=== PATIENT | female | born 1990 | race Caucasian/White ===

== ENCOUNTER 2020-05-07 09:16 | Outpatient (CLI) | payer OTHER, SELFPAY ==
[2020-05-07 10:13] LABS: Alanine Aminotransferase 23 U/L (4-35); Albumin Level 4.2 g/dL (3.5-5.1); Alkaline Phosphatase 68 U/L (38-126); Aspartate Amino Transferase 36 U/L (14-36); Bilirubin,Total 0.6 mg/dL (0.2-1.3)
[2020-05-07 11:41] LABS: Immunoglobulin A 202 mg/dL (70-400)
[2020-05-12 21:27] LABS: Tissue Transglutaminase IgA Ab 1 U/mL (<4)
[2020-05-15 18:16] LABS: Calprotectin, Stool 793 mcg/g
== END 2020-05-07 09:17 | disposition home or self-care (01) ==
PROVIDERS: PCP Family Medicine
DX: R19.7 Diarrhea, unspecified (principal); R79.89 Other specified abnormal findings of blood chemistry
CPT/HCPCS: 36415; 80076; 82784; 83516; 83993; 84443; 87015; 87177; 87209; 87269; 87272; 87324; 87493

== ENCOUNTER 2020-05-25 14:50 | Outpatient (RCR) | payer OTHER, SELFPAY ==
[2020-05-25 15:20] VITALS: BMI 26.2
== END 2020-08-13 09:35 | disposition home or self-care (01) ==
LOC: ANHDMC 14:50
PROVIDERS: PCP Family Medicine; Visit Provider Physician Assistant
DX: K58.9 Irritable bowel syndrome, unspecified (principal); Z71.3 Dietary counseling and surveillance
CPT/HCPCS: 97802

== ENCOUNTER 2020-12-09 14:36 | Outpatient (CLI) | payer OTHER, SELFPAY ==
--- NOTE | ~2020-12-09 | US_ITS ---
EXAMINATION: US OB <= 14 weeks fetus DATE: 12/09/2020 15:03 INDICATION: Establish dating and viability of first trimester TECHNIQUE: Real-time pelvic ultrasound utilizing both a transvaginal and transabdominal probe was pe rformed. The interpreting radiologist was not present for the study. COMPARISON: None. FINDINGS: The uterus measures 7.1 x 5.4 x 5.5 cm. There is an intrauterine gestational sac. A yolk sac and fet al pole are identified. The crown rump length measures 2.4 cm, which correlates with an estimated ges tational age of 9 weeks and 1 days. heart motion is identified measuring 185 beats per minute ( bpm) by M-mode Doppler. The right ovary is not visualized The left ovary measures 1.4 x 1.6 x 2.1 cm. Vascular flow is identi fied in the ovary on color Doppler. There is no free fluid in the pelvis. IMPRESSION: 1. Single living fetus with heart of 185 bpm. 2. Gestational age by ultrasound of 9 weeks 1 day(s) +/- 6 day(s) with ultrasound estimated date of delivery ([place]) of 07/13/2021. Reviewed, dictated and finalized at location A. IMPRESSION: 1. Single living fetus with heart of 185 bpm. 2. Gestational age by ultrasound of 9 weeks 1 day(s) +/- 6 day(s) with ultraso und estimated date of delivery ([place]) of 07/13/2021.
== END 2020-12-09 14:37 | disposition home or self-care (01) ==
PROVIDERS: PCP Family Medicine; Visit Provider Student in an Organized Health Care Education/Training Program
DX: Z36.89 Encounter for other specified antenatal screening (principal); Z3A.09 9 weeks gestation of pregnancy
CPT/HCPCS: 76801

== ENCOUNTER 2020-12-20 08:57 | Outpatient (CLI) | payer OTHER, SELFPAY ==
--- NOTE | ~2020-12-20 | US_ITS ---
EXAMINATION: US OB <= 14 weeks fetus EXAM DATE: 12/20/2020 10:40 INDICATION: O20.0 - Threatened . 1st trimester. TECHNIQUE: Pelvic obstetrical transabdominal sonogram was performed by a technologist. There are mu ltiple grayscale and Doppler images available for interpretation. Comparison is made to prior examina tion from 12/09/2020. FINDINGS: Uterus measures 11.8 x 7.6 x 5.6 cm. There is intrauterine gestation sac. pole with heart rate confirmed at 167 beats per minute. The 3.3 cm crown-rump length corresponds to estimated gestational age by ultrasound of 10 weeks 2 days, estimated date of confinement 07/16. Yolk sac is i dentified. There is small subchorionic hypoechoic region identified measuring about 1.5 cm diameter by 7 mm in thickness, probably small subchorionic hemorrhage. Left ovary identified, morphologicall y normal with Doppler flow confirmed. Right ovary not identified. IMPRESSION: Live intrauterine gestation with suspicion of small subchorionic hematoma. Reviewed, dictated and finalized at location A. IMPRESSION: Live intrauterine gestation with suspicion of small subchorionic h ematoma.
[2020-12-20 09:43] LABS: Basophils Percent Auto 0.1 % (0.2-1.2); Eosinophils Absolute Auto 0.1 K/mm3 (0-0.3); Eosinophils Percent Auto 0.8 % (0-4.4); Hematocrit 40.3 % (37.0-47.0); Hemoglobin 13.5 g/dL (12.0-15.0); Immature Granulocyte Absolute 0.04 K/mm3 (0.00-0.031); Immature Granulocyte Percent A 0.6 % (0-0.5); Immature Platelet Fraction Pct 2.7 % (0.9-11.2); Lymphocytes Percent Auto 13.9 % (18.3-44.2); Mean Corpuscular HGB Conc 33.5 g/dl (32-36); Mean Corpuscular Hemoglobin 33.1 pg (26-34); Mean Corpuscular Volume 98.8 fl (80-100); Mean Platelet Volume 10.1 fl (7.4-10.4); Monocytes Absolute Auto 0.4 K/mm3 (0.1-0.6); Monocytes Percent Auto 5.7 % (2.6-8.5); Neutrophils Absolute Auto 5.7 K/mm3 (1.3-6.7); Neutrophils Percent Auto 78.9 % (45.5-73.1); Platelet Count Result 157 k/mm3 (150-375); Red Blood Count 4.08 M/mm3 (4.2-5.4); Red Cell Distribution Width 14.4 % (11.5-14.5); White Blood Count 7.2 K/mm3 (4.5-10.0)
== END 2020-12-20 08:58 | disposition home or self-care (01) ==
PROVIDERS: PCP Family Medicine; Visit Provider Student in an Organized Health Care Education/Training Program
DX: O20.0 Threatened abortion (principal); Z3A.00 Weeks of gestation of pregnancy not specified
CPT/HCPCS: 36415; 76801; 84702; 85025; 85055; 86900; 86901

== ENCOUNTER 2021-01-10 15:24 | Outpatient (CLI) | payer OTHER, SELFPAY ==
--- NOTE | ~2021-01-10 | US_ITS ---
EXAMINATION: US OB <= 14 weeks fetus DATE: 01/10/2021 16:06 INDICATION: Supervision of normal . TECHNIQUE: Real-time transabdominal obstetric ultrasound. FINDINGS: Comparison to multiple prior studies sequentially, with oldest reviewed study dated 2020. There is a single living fetus in variable presentation. The placenta is posterior without placenta previa. cardiac activity and movement is noted with a heart rate of 155 beats per minute. T he amniotic fluid volume is subjectively normal. The following biometric data were obtained: BPD: 13mm. Head circumference: 93mm corresponds to gestational age 14 weeks 2 days. Abdominal circumference: 78mm corresponds to gestational age 14 weeks 2 days. Femur length: 11mm corresponds to gestational age 13 weeks 2 days. Estimated weight: 83grams +/- 12grams. IMPRESSION: 1. Single living intrauterine fetus with an estimated gestational age of 13 weeks 5 days by inititia l ultrasound. EDC by initial ultrasound is 13 weeks 5 days. Reviewed, dictated and finalized at location A. [facility] MINER IMPRESSION: 1. Single living intrauterine fetus with an estimated gestational age of 13 we eks 5 days by inititial ultrasound. EDC by initial ultrasound is 13 weeks 5 day s.
== END 2021-01-10 15:25 | disposition home or self-care (01) ==
LOC: ANHIMG 15:25
PROVIDERS: PCP Family Medicine; Visit Provider Student in an Organized Health Care Education/Training Program
DX: O41.8X10 Other specified disorders of amniotic fluid and membranes, first trimester, not applicable or unspecified (principal); O46.8X1 Other antepartum hemorrhage, first trimester; Z3A.13 13 weeks gestation of pregnancy
CPT/HCPCS: 76801

== ENCOUNTER 2021-01-19 13:02 | Outpatient (CLI) | payer OTHER, SELFPAY ==
[2021-01-19 14:53] LABS: HIV 1/2 Ab P24 Ag Result Negative (Negative)
[2021-01-19 16:08] LABS: HIV 1/2 Ab P24 Ag 0.08
[2021-01-19 17:24] LABS: Hepatitis C Virus Antibody Negative (Negative)
[2021-01-21 12:12] LABS: Hemoglobin 13.4 g/dL (11.7-15.5); MCH 33.2 pg (27.0-33.0); MCV 96.5 fL (80.0-100.0); RDW 13.6 % (11.0-15.0); Red Blood Cell Count 4.04 Mill/uL (3.80-5.10)
== END 2021-01-19 13:03 | disposition home or self-care (01) ==
LOC: ANHLAB 13:05
PROVIDERS: PCP Family Medicine; Visit Provider Student in an Organized Health Care Education/Training Program
DX: Z34.92 Encounter for supervision of normal pregnancy, unspecified, second trimester (principal); Z3A.14 14 weeks gestation of pregnancy
CPT/HCPCS: 36415; 83021; 86703; 86803; 87086; G0432

== ENCOUNTER 2021-05-27 10:35 | Outpatient (CLI) | payer OTHER, SELFPAY ==
[2021-05-27 11:05] LABS: Hematocrit 39.2 % (37.0-47.0); Hemoglobin 13.4 g/dL (12.0-15.0); Mean Corpuscular HGB Conc 34.2 g/dl (32-36); Mean Corpuscular Hemoglobin 32.8 pg (26-34); Mean Corpuscular Volume 95.8 fl (80-100); Mean Platelet Volume 9.9 fl (7.4-10.4); Platelet Count Result 142 k/mm3 (150-375); Red Blood Count 4.09 M/mm3 (4.2-5.4); Red Cell Distribution Width 13.6 % (11.5-14.5)
== END 2021-05-27 10:36 | disposition home or self-care (01) ==
LOC: ANHLAB 10:40
PROVIDERS: PCP Family Medicine
DX: Z34.93 Encounter for supervision of normal pregnancy, unspecified, third trimester (principal); Z3A.32 32 weeks gestation of pregnancy
CPT/HCPCS: 36415; 85027

== ENCOUNTER 2022-01-26 07:10 | Outpatient (CLI) | payer OTHER, SELFPAY ==
[2022-01-26 08:01] LABS: Hematocrit 42.2 % (37.0-47.0); Mean Corpuscular HGB Conc 33.2 g/dl (32-36); Mean Corpuscular Hemoglobin 30.2 pg (26-34); Mean Corpuscular Volume 91.1 fl (80-100); Mean Platelet Volume 9.7 fl (7.4-10.4); Platelet Count Result 171 k/mm3 (150-375); Red Blood Count 4.63 M/mm3 (4.2-5.4); White Blood Count 6.2 K/mm3 (4.5-10.0)
[2022-01-26 10:07] LABS: Alanine Aminotransferase 35 U/L (6-35); Albumin Level 4.5 g/dL (3.5-5.1); Alkaline Phosphatase 88 U/L (38-126); Anion Gap 6 mmol/L (8-16); Aspartate Amino Transferase 68 U/L (14-36); Bilirubin,Total 0.7 mg/dL (0.2-1.3); Blood Urea Nitrogen 20 mg/dL (7-17); Calcium 8.9 mg/dL (8.4-10.2); Carbon Dioxide 28 mmol/L (22-30); Chloride 105 mmol/L (98-107); Cholesterol 204 mg/dL (0-200); Estimated Glomerular Filt Rate > 60; Glucose 75 mg/dL (65-110); HDL Direct 60 mg/dL; Potassium 3.7 mmol/L (3.4-5.0); Sodium 139 mmol/L (137-145); Triglycerides 55 mg/dL (<150)
[2022-01-26 10:17] LABS: LDL Cholesterol Direct 111 mg/dL
[2022-01-30 22:32] LABS: Vitamin D 1,25 (OH)2 Total 63 pg/mL (18-72); Vitamin D2 1,25 (OH)2 <8 pg/mL; Vitamin D3 1,25 (OH)2 63 pg/mL
[2022-01-31 04:25] LABS: Zinc 74 mcg/dL (60-130)
== END 2022-01-26 07:11 | disposition home or self-care (01) ==
LOC: ANHLAB 07:13
PROVIDERS: PCP Family Medicine; Visit Provider Physician Assistant
DX: Z00.00 Encounter for general adult medical examination without abnormal findings (principal); Z13.220 Encounter for screening for lipoid disorders; Z13.1 Encounter for screening for diabetes mellitus; R53.83 Other fatigue; E53.8 Deficiency of other specified B group vitamins; E55.9 Vitamin D deficiency, unspecified; D64.9 Anemia, unspecified
CPT/HCPCS: 36415; 80053; 80061; 82607; 82652; 84630; 85027

== ENCOUNTER 2022-02-01 03:55 | Emergency (ER) | payer OTHER, SELFPAY ==
[2022-02-01 03:57] VITALS: BP 125/65; PULSE 95; RESP 18; TEMP 36.5; O2SAT 98
[2022-02-01 04:32] LABS: Add Urine Microscopic? YES; Appearance Urine Clear (Clear); Bilirubin Urine Negative (Negative); Blood Urine Negative (Negative); Color Urine Light Yellow (Yellow); Glucose Urine UA Negative (Negative); Ketones Urine 3+ mg/dL (Negative); Leukocyte Esterase Ur Negative LEU/UL (Negative); Nitrate Urine Negative (Negative); Protein Urine Negative (Negative); Urobilinogen Urine 0.2 mg/dL (<2.0); pH Urine 5.5 (5.0-9.0)
--- NOTE | 2022-02-01 04:39 | ED.GENADULT ---
HPI - General Adult General Chief complaint: Abdominal Pain Stated complaint: abdominal pain Time Seen by Provider: 02/01/22 04:15 History of Present Illness HPI narrative: This is a 31-year-old female with a history of chronic abdominal discomfort presenting to ED with abdominal discomfort. Patient says that she had dinner yesterday at 6:30 a.m.. After she ate she had some tightness / bloating/ burning pain in the epigastric area. It is nonradiating, 6/10 in intensity and improving. She has experienced this multiple times over the last week or 2 after she has had meals. She is taking a hot bath with no relief. She notices the pain gets worse after eating. She has had some nausea but no vomiting. She had some loose stools which are normal for her. She denies fever, chills, chest pain, difficulty breathing or urinary symptoms. The patient has seen multiple GI physicians in the past and was diagnosed with IBS although she is skeptical of the diagnosis. Patient is 6 months . Things are going well with her baby. Related Data Home Medications Medication Instructions Recorded Confirmed acyclovir 400 mg tablet 400 mg PO DAILY PRN 11/23/20 ascorbic acid (vitamin C) 100 mg 100 mg PO DAILY 11/23/20 tablet calcium carbonate 500 mg calcium 75 mg PO DAILY 11/23/20 (1,250 mg) tablet (Calcium 500) cholecalciferol (vit D3) 1,000 1 tablet PO DAILY 11/23/20 unit-vitamin K2 (MK4) 100 mcg tablet (K2 Plus D3) cholecalciferol (vitamin D3) 125 4,000 unit PO DAILY 11/23/20 mcg (5,000 unit) capsule creatine monohydrate ea PO 11/23/20 electrolytes-dextrose oral 5 ml PO Q15M PRN 11/23/20 solution (Pedialyte oral solution) magnesium 250 mg tablet 250 mg PO DAILY 11/23/20 omega-3 fatty acids 1,000 mg 2,200 mg PO DAILY 11/23/20 capsule vitamin E (dl, acetate) 180 mg 60 unit PO DAILY 11/23/20 (400 unit) capsule vitamin E (dl, acetate) 450 mg 60 mg PO DAILY 11/23/20 (1,000 unit) capsule zinc acetate 25 mg (zinc) capsule 25 mg PO DAILY 11/23/20 Allergies Allergy/AdvReac Type Severity Reaction Status Date / Time No Known Allergies Allergy Verified 02/01/22 03:56 Review of Systems Review of Systems: CONSTITUTIONAL: Denies night sweats. EYES: No eye pain ENT: Denies rhinorrhea CARDIOVASCULAR: Denies palpitations RESPIRATORY: Denies hemoptysis GASTROINTESTINAL: Denies hematemesis GENITOURINARY: Denies hematuria. SKIN: Denies rash MUSCULOSKELETAL: Denies myalgia. NEUROLOGIC: Denies weakness. PSYCHIATRIC: Denies delusions PMFSH Past Medical History Medical History Gastrocnemius muscle strain Genital HSV History of chronic diarrhea Irritable bowel syndrome Surgical History Surgical History History of cholecystectomy History of colonoscopy 2020 [place] teeth removed Family History Family History Mother Cervical cancer Social History Social History Smoking status: Never smoker Alcohol intake: former Substance use: never Spiritual care concerns: No Exam Narrative: APPEARANCE: No apparent distress. Patient is polite during the interview. she has her 6-month-old baby with her. Head: atraumatic. EYES: EOMI, NOSE: Atraumatic NECK: Trachea midline RESPIRATORY: No increased rate of breathing CARDIOVASCULAR: RRR, ABDOMINAL: Abdomen is to attend has mild tenderness in the epigastric area. Special attention was placed to the right upper quadrant, right lower quadrant with no tenderness to palpation. There is no guarding or rebound tenderness MUSCULOSKELETAl: No obvious deformities NEURO: Alert. Moving 4/4 extremities SKIN:: Warm, dry. Normal color PSYCHIATRIC: Normal affect Course Vital Signs Vital signs: Vital Signs Temperature 97.7 F
[2022-02-01 04:43] LABS: Bacteria Urine Trace /hpf; Mucus Urine Rare /lpf; Squamous Epithelial Cell Urine Few /hpf (Few); WBC Urine 0-3 /hpf
[2022-02-01] MEDS: DICYCLOMINE HCL 10 MG CAPSULE 20 MG PO (04:46)
[2022-02-01] MEDS: MAG HYDROX/AL HYDROX/SIMETH 30 ML UDC PO (04:46)
[2022-02-01] MEDS: FAMOTIDINE 20 MG TABLET PO (04:47)
== END 2022-02-01 05:40 | disposition home or self-care (01) ==
PROVIDERS: Emergency Provider Emergency Medicine; PCP Family Medicine
DX: R10.13 Epigastric pain (principal)
CPT/HCPCS: 81001; 81025; 99283; A4565; A9270

== ENCOUNTER 2022-05-01 22:39 | Emergency (ER) | payer OTHER, SELFPAY ==
[2022-05-01 23:08] VITALS: BP 131/75; PULSE 72; RESP 16; TEMP 36.6; O2SAT 99
[2022-05-01 23:42] LABS: Basophils Percent Auto 0.3 % (0.2-1.2); Eosinophils Absolute Auto 0.2 K/mm3 (0-0.3); Eosinophils Percent Auto 2.1 % (0-4.4); Hematocrit 45.1 % (37.0-47.0); Hemoglobin 15.2 g/dL (12.0-15.0); Immature Granulocyte Absolute 0.03 K/mm3 (0.00-0.031); Immature Granulocyte Percent A 0.3 % (0-0.5); Lymphocytes Absolute Auto 1.33 K/mm3 (0.9-3.2); Lymphocytes Percent Auto 14.7 % (18.3-44.2); Mean Corpuscular HGB Conc 33.7 g/dl (32-36); Mean Corpuscular Hemoglobin 31.1 pg (26-34); Mean Corpuscular Volume 92.2 fl (80-100); Mean Platelet Volume 10.3 fl (7.4-10.4); Monocytes Absolute Auto 0.6 K/mm3 (0.1-0.6); Monocytes Percent Auto 6.3 % (2.6-8.5); Neutrophils Absolute Auto 6.9 K/mm3 (1.3-6.7); Neutrophils Percent Auto 76.3 % (45.5-73.1); Platelet Count Result 184 k/mm3 (150-375); Red Blood Count 4.89 M/mm3 (4.2-5.4); Red Cell Distribution Width 13.4 % (11.5-14.5)
[2022-05-02 00:23] LABS: Alanine Aminotransferase 28 U/L (6-35); Albumin Level 4.8 g/dL (3.5-5.1); Alkaline Phosphatase 87 U/L (38-126); Anion Gap 9 mmol/L (8-16); Aspartate Amino Transferase 39 U/L (14-36); Bilirubin,Total 0.7 mg/dL (0.2-1.3); Blood Urea Nitrogen 23 mg/dL (7-17); Calcium 9.2 mg/dL (8.4-10.2); Carbon Dioxide 24 mmol/L (22-30); Chloride 107 mmol/L (98-107); Estimated CRCL calculation 119 ml/min; Estimated Glomerular Filt Rate > 60; Glucose 100 mg/dL (65-110); Lipase 186 U/L (23-300); Potassium 3.8 mmol/L (3.4-5.0); Sodium 140 mmol/L (137-145)
--- NOTE | 2022-05-02 00:58 | PC.NURSE ---
Patient approached the intake desk and informed magnetic tape typewriter operator that someone is going to pick her up. She reported she can't wait any longer because she needs to go home to put her breast milk in the fridge and shes tired of waiting and wants to go to bed. Patient alert and ambulatory out ED doors.
== END 2022-05-02 00:59 | disposition left against medical advice (07) ==
LOC: ANHED 05-02 01:31
PROVIDERS: Emergency Provider Emergency Medicine; PCP Family Medicine
DX: R10.9 Unspecified abdominal pain (principal)
CPT/HCPCS: 36415; 80053; 83690; 85025; 99199

== ENCOUNTER 2022-05-02 06:50 | Emergency (ER) | payer OTHER, SELFPAY ==
[2022-05-02 06:53] VITALS: BP 119/69; PULSE 74; RESP 14; TEMP 36.6; O2SAT 100
--- NOTE | 2022-05-02 07:44 | ED.GENADULT ---
HPI - General Adult General Chief complaint: Abdominal Pain Stated complaint: abd pain Time Seen by Provider: 05/02/22 07:24 History of Present Illness HPI narrative: 31-year-old female with reported history of GI issues including upper abdominal pain and frequent diarrhea presenting to the ED complaining of epigastric pain. Patient states she has been having worsening symptoms over the last few days. Patient states symptoms are worsened with eating. Patient does have a prior history of cholecystectomy. Patient reports that the pain is epigastric primarily but that she does have tenderness over her entire abdomen. Patient does report associated nausea without vomiting. Patient did attempt to take some Zofran last night for the nausea but reports this only caused dry heaves. Patient did attempt to be seen in the emergency department yesterday but the line was too long so she should wait to see GI. Patient then became concerned that GI office would not be able to see her that the ED would be too busy later so she presented to the emergency department this morning for evaluation. Patient states her pain is improved compared to yesterday but is not absent. Patient states she does not take any medications for gastritis. Reports that prior to she used to have chronic diarrhea but since having her child that her pain has been more epigastric in nature. Patient denies any associated chest pain or shortness of breath. Patient has nausea with primarily dry heaves. Patient denies any current diarrhea, constipation. Related Data Home Medications Medication Instructions Recorded Confirmed acyclovir 400 mg tablet 400 mg PO DAILY PRN 11/23/20 ascorbic acid (vitamin C) 100 mg 100 mg PO DAILY 11/23/20 tablet calcium carbonate 500 mg calcium 75 mg PO DAILY 11/23/20 (1,250 mg) tablet (Calcium 500) cholecalciferol (vit D3) 1,000 1 tablet PO DAILY 11/23/20 unit-vitamin K2 (MK4) 100 mcg tablet (K2 Plus D3) cholecalciferol (vitamin D3) 125 4,000 unit PO DAILY 11/23/20 mcg (5,000 unit) capsule creatine monohydrate ea PO 11/23/20 electrolytes-dextrose oral 5 ml PO Q15M PRN 11/23/20 solution (Pedialyte oral solution) magnesium 250 mg tablet 250 mg PO DAILY 11/23/20 omega-3 fatty acids 1,000 mg 2,200 mg PO DAILY 11/23/20 capsule vitamin E (dl, acetate) 180 mg 60 unit PO DAILY 11/23/20 (400 unit) capsule vitamin E (dl, acetate) 450 mg 60 mg PO DAILY 11/23/20 (1,000 unit) capsule zinc acetate 25 mg (zinc) capsule 25 mg PO DAILY 11/23/20 niacin 50 mg tablet 30 mg PO DAILY 03/02/22 Allergies Allergy/AdvReac Type Severity Reaction Status Date / Time No Known Allergies Allergy Verified 05/02/22 06:50 Review of Systems Review of Systems: All systems reviewed & are unremarkable except as noted in HPI and below PMFSH Past Medical History Medical History (Updated 05/02/22 @ 19:16 by Reji Stevens MD) Gastrocnemius muscle strain Genital HSV History of chronic diarrhea Irritable bowel syndrome Irritable bowel syndrome with diarrhea Surgical History Surgical History History of cholecystectomy History of colonoscopy 2020 [place] teeth removed Family History Family History Mother Cervical cancer Social History Social History Smoking status: Never smoker Alcohol intake: former Substance use: never Spiritual care concerns: No Exam Narrative: APPEARANCE: Well appearing, no pain, no distress, well-nourished. HEAD: normocephalic, atraumatic. EYES: PERRLA/EOMI, conjunctivae clear. NOSE: Normal no drainage NECK: Supple. No adenopathy, no masses. RESPIRATORY: Airway patent, respirations nonlabored. Clear to auscultation bilaterally, no rales, rhonchi, wheezing. CARDIOVASCULAR: Regular rate and rhythm wit
[2022-05-02] MEDS: PANTOPRAZOLE SODIUM IV 40 MG VIAL IV PUSH (08:35)
[2022-05-02] MEDS: ONDANSETRON INJ 4 MG/2 ML VIAL IV PUSH (08:35)
[2022-05-02] MEDS: BELLADONNA ALK/PHENOB ELIX 10 ML, MAG HYDROX/ALUMINUM HYD/SIMETH 30 ML, LIDOCAINE HCL 2... PO (08:35)
[2022-05-02] MEDS: SODIUM CHLORIDE 0.9% IV 1,000 ML 999 ML IV CONT (08:36)
[2022-05-02 09:03] LABS: Basophils Percent Auto 0.3 % (0.2-1.2); Eosinophils Absolute Auto 0.1 K/mm3 (0-0.3); Eosinophils Percent Auto 1.3 % (0-4.4); Hematocrit 43.6 % (37.0-47.0); Hemoglobin 14.6 g/dL (12.0-15.0); Immature Granulocyte Absolute 0.01 K/mm3 (0.00-0.031); Immature Granulocyte Percent A 0.1 % (0-0.5); Lymphocytes Percent Auto 17.3 % (18.3-44.2); Mean Corpuscular HGB Conc 33.5 g/dl (32-36); Mean Corpuscular Hemoglobin 30.2 pg (26-34); Mean Corpuscular Volume 90.3 fl (80-100); Mean Platelet Volume 9.8 fl (7.4-10.4); Monocytes Absolute Auto 0.5 K/mm3 (0.1-0.6); Monocytes Percent Auto 7.7 % (2.6-8.5); Neutrophils Absolute Auto 5.1 K/mm3 (1.3-6.7); Neutrophils Percent Auto 73.3 % (45.5-73.1); Platelet Count Result 180 k/mm3 (150-375); Red Blood Count 4.83 M/mm3 (4.2-5.4); Red Cell Distribution Width 13.4 % (11.5-14.5); White Blood Count 6.9 K/mm3 (4.5-10.0)
[2022-05-02 09:04] LABS: Appearance Urine Clear (Clear); Bilirubin Urine Negative (Negative); Blood Urine Negative (Negative); Color Urine Yellow (Yellow); Glucose Urine UA Negative (Negative); Ketones Urine 1+ mg/dL (Negative); Leukocyte Esterase Ur Negative LEU/UL (Negative); Nitrate Urine Negative (Negative); Protein Urine Negative (Negative); Specific Grav Ur 1.024 (1.001-1.035); Urobilinogen Urine 0.2 mg/dL (<2.0)
[2022-05-02 09:12] LABS: Alanine Aminotransferase 27 U/L (6-35); Albumin Level 4.8 g/dL (3.5-5.1); Alkaline Phosphatase 88 U/L (38-126); Anion Gap 8 mmol/L (8-16); Aspartate Amino Transferase 31 U/L (14-36); Bilirubin,Total 0.6 mg/dL (0.2-1.3); Blood Urea Nitrogen 18 mg/dL (7-17); Calcium 9.2 mg/dL (8.4-10.2); Carbon Dioxide 28 mmol/L (22-30); Chloride 105 mmol/L (98-107); Estimated CRCL calculation 104 ml/min; Estimated Glomerular Filt Rate > 60; Glucose 91 mg/dL (65-110); Lipase 138 U/L (23-300); Potassium 3.7 mmol/L (3.4-5.0); Sodium 141 mmol/L (137-145)
[2022-05-02 09:16] LABS: Add Urine Microscopic? NO
[2022-05-02 10:18] VITALS: BP 117/70; PULSE 55; RESP 18; O2SAT 100
== END 2022-05-02 10:22 | disposition home or self-care (01) ==
PROVIDERS: Emergency Provider Emergency Medicine; PCP Family Medicine
DX: K29.70 Gastritis, unspecified, without bleeding (principal); K58.0 Irritable bowel syndrome with diarrhea
CPT/HCPCS: 36415; 80053; 81003; 81025; 83605; 83690; 85025; 96361; 96374; 96375; 99284; A9270; C9113; J2405; J7030

== ENCOUNTER 2022-05-19 01:10 | Day surgery (SDC) | payer OTHER, SELFPAY ==
[2022-05-17 10:10] VITALS: BMI 32.8
[2022-05-19 11:12] VITALS: BP 129/71; PULSE 108; RESP 16; TEMP 36.3; O2SAT 99
[2022-05-19] MEDS: LACTATED RINGERS 1,000 ML 150 ML IV CONT (11:13)
--- NOTE | 2022-05-19 11:41 | WPDHPUPDATE1 ---
History and Physical Update Update Date/Time: 05/19/22 11:41 History and Physical has been reviewed, including an updated exam of the patient. There are NO changes in the patient's condition. Risks, benefits, and alternatives have been discussed and questions answered. Patient agrees to proceed with procedure.
--- NOTE | 2022-05-19 11:49 | P.PNAN_ITS ---
Anes - Initial Pre Proc Eval Procedure: Operation Date: 05/19/22 12:30 Proposed Procedures p Esophagogastroduodenoscopy - Rodrigo Alexandra MD Date/Time: 05/19/22 11:49 Surgeon: Rodrigo Alexandra MD Pre Op Diagnosis: N&V Patient Data Age: 31 Gender: F Height: 1.6 m Weight: 84.3 kg Last Vital Signs Temp 97.4 F L 05/19/22 11:12 Pulse 108 H 05/19/22 11:12 Resp 16 05/19/22 11:12 BP 129/71 05/19/22 11:12 Pulse Ox 99 05/19/22 11:12 O2 Del Method Room Air 05/19/22 11:12 Allergies Allergy/AdvReac Type Severity Reaction Status Date / Time No Known Allergies Allergy Verified 05/19/22 11:10 Home Medications Medication Instructions Recorded Confirmed Type vit no.78-iron 18 1 cap PO DAILY #100 caps 03/21/19 05/19/22 Rx mg-folic acid no.1 1 mg-dha 300 mg capsule (Prenate DHA (ferrous asparto glycinate)) cholecalciferol (vit D3) 1,000 1 tablet PO DAILY 11/23/20 05/19/22 History unit-vitamin K2 (MK4) 100 mcg tablet (K2 Plus D3) ondansetron 4 mg disintegrating 4 mg PO Q8H PRN nausea and 05/11/22 05/19/22 Rx tablet vomiting #60 tabs famotidine 20 mg tablet (Pepcid) 20 mg PO BID PRN Acid Reflux 05/17/22 05/19/22 History omega-3 fatty acids 2,200 mg PO DAILY 05/17/22 05/19/22 History amitriptyline 25 mg tablet 50 mg PO QHS 1 month #60 tabs 05/19/22 Rx Patient hx anesthesia problems: none Family hx anesthesia problems: none Results Review: All pre-operative results and documents have been reviewed as part of the pre- operative evaluation. [facility] Past Medical History Medical History (Updated 05/11/22 @ 15:52 by Rodrigo Alexandra MD) Gastrocnemius muscle strain Genital HSV History of chronic diarrhea Irritable bowel syndrome Irritable bowel syndrome with diarrhea Nausea and vomiting in adult Surgical History Surgical History History of cholecystectomy History of colonoscopy 2020 [place] teeth removed Family History Family History Mother Cervical cancer Social History Social History Smoking status: Never smoker Alcohol intake: former Substance use: never Living arrangements: with family Spiritual care concerns: No Anes - Eval Final PreProcedure Day of Procedure 05/19/22 11:49 Patient weight: normal Heart: regular rate and rhythm Lungs: clear to auscultation Airway: Mallampati scale class II Neurological: alert and oriented Last oral intake: >/= 8 hours ASA classification: II Emergent: no Anesthetic plan: proceed Anesthesia type and monitoring: general GIVS and standard monitoring Results Review: All pre-operative results and documents have been reviewed as part of the pre- operative evaluation. Informed Consent: The patient's anesthetic plan and its attendant risks and benefits were discussed with the patient/family/POA. Questions were solicited and answers provided to the satisfaction of the patient/family/POA.
[2022-05-19 12:01] VITALS: BP 112/74; PULSE 93; RESP 23; O2SAT 97
[2022-05-19 12:11] VITALS: BP 115/74; PULSE 83; RESP 16; O2SAT 97
[2022-05-19 12:21] VITALS: BP 105/73; PULSE 84; RESP 18; O2SAT 98
== END 2022-05-19 12:35 | disposition home or self-care (01) ==
PROVIDERS: PCP Family Medicine; Visit Provider Internal Medicine Gastroenterology
PROC: 0DJ08ZZ Inspection of Upper Intestinal Tract, Via Natural or Artificial Opening Endoscopic (ICD-10-PCS; CPT 43235; principal; 2022-05-19 12:30)
DX: R11.2 Nausea with vomiting, unspecified (principal); K58.0 Irritable bowel syndrome with diarrhea
CPT/HCPCS: 43239; 88305; J2704; J7120

== ENCOUNTER 2022-05-20 16:34 | Emergency (ER) | payer OTHER, SELFPAY ==
--- NOTE | 2022-05-20 16:43 | ED.URI ---
HPI - URI/Sore Throat General Chief Complaint: Upper Respiratory Infection Stated Complaint: Sore Throat Source: patient and RN notes reviewed History of Present Illness HPI Narrative: 31 yo F presents to urgent care with complaints of a hoarse throat, congestion, cough, and pressure in her ears since Sunday. Pt states she had an episode of cyclic vomiting on Sunday night and is usually a little hoarse after that but it hasn't cleared up yet. Pt reports a sore throat on Sunday. Pt reports popping in her left ear. Denies any fevers, chills, diarrhea, SOB, or chest pain. Pt has been taking Delsym, Mucinex, and Afrin. Related Data Allergies Allergy/AdvReac Type Severity Reaction Status Date / Time No Known Allergies Allergy Verified 05/20/22 16:47 Review of Systems Review of Systems: Pertinent positives and pertinent negatives per HPI. [facility] Past Medical History Medical History (Updated 05/20/22 @ 17:20 by Heide Kirkpatrick, VIKTOR) Gastrocnemius muscle strain Genital HSV History of chronic diarrhea Irritable bowel syndrome Irritable bowel syndrome with diarrhea Nausea and vomiting in adult Surgical History Surgical History History of cholecystectomy History of colonoscopy 2020 [place] teeth removed Family History Family History Mother Cervical cancer Social History Social History Smoking status: Never smoker Alcohol intake: former Substance use: never Living arrangements: with family Spiritual care concerns: No Comments At the time of my signature, I reviewed and agree with the nursing past medical, surgical, social, and family history. There is no relevant family history pertinent to the patient complaint. Exam Narrative: GENERAL: This is a well-nourished, well-developed patient, in no apparent distress. HEAD: normocephalic, atraumatic. EYES: Sclera clear/white. Vision is grossly intact. EARS: External ears normal, Left TM ruptured, erythremic. Right TM normal. no bulging. NOSE: External nose normal with no obvious nasal discharge, nares without redness, no rhinorrhea. THROAT: Mucous membranes moist, posterior pharynx clear. NECK: Neck supple, non-tender without lymphadenopathy, masses or thyromegaly. CARDIOVASCULAR: Regular rate and rhythm without murmurs, gallops, or rubs. RESPIRATORY: Clear to auscultation. Breath sounds equal bilaterally. No wheezes, rales, or rhonchi. SKIN: warm, intact with no suspicious lesions or rash, good texture and turgor. NEURO: awake, alert, and oriented to person, place and time. There were no obvious focal neurologic abnormalities. Course Course Level of Care: Express Care Visit Vital Signs Vital signs: Vital Signs Temperature 97.6 F 05/20/22 16:51 Pulse Rate 86 05/20/22 16:51 Respiratory Rate 14 05/20/22 16:51 Blood Pressure 120/75 05/20/22 16:51 Pulse Oximetry 98 05/20/22 16:51 Oxygen Delivery Room Air 05/20/22 16:51 Temperature 97.6 F 05/20/22 16:51 Pulse Rate 86 05/20/22 16:51 Respiratory Rate 14 05/20/22 16:51 Blood Pressure 120/75 05/20/22 16:51 Pulse Oximetry 98 05/20/22 16:51 Oxygen Delivery Room Air 05/20/22 16:51 reviewed MDM - URI/Sore Throat MDM Narrative Medical decision making narrative: take your antibiotics as directed. Have your ear rechecked after the antibiotic course. Get plenty of fluids and rest for the laryngitis. Increased vitamin-C. Differential Diagnosis Differential diagnosis: Likely upper respiratory infection, viral infection and pharyngitis Lab Data Attestation: I reviewed the patient's lab results. Labs: Lab Results 05/20/22 Range/Units 16:45 POC SARS CoV-2 Ag Negative (Negative) Influenza A Screen Negative Refe
[2022-05-20 16:51] VITALS: BP 120/75; PULSE 86; RESP 14; TEMP 36.4; O2SAT 98
--- NOTE | 2022-05-20 17:43 | PC.NURSE ---
Pts pharmacy was closed medication was called into [facility] 17:42- Amox and Flonase
== END 2022-05-20 17:25 | disposition home or self-care (01) ==
PROVIDERS: Emergency Provider Nurse Practitioner Family; PCP Family Medicine
DX: J04.0 Acute laryngitis (principal); H72.92 Unspecified perforation of tympanic membrane, left ear; Z20.822 Contact with and (suspected) exposure to COVID-19
CPT/HCPCS: 87081; 87426; 87804; 87880; 99213; C9803; G0463

== ENCOUNTER 2022-09-25 06:54 | Outpatient (CLI) | payer OTHER, SELFPAY ==
[2022-09-25 07:31] LABS: Basophils Percent Auto 0.2 % (0.2-1.2); Eosinophils Absolute Auto 0.1 K/mm3 (0-0.3); Eosinophils Percent Auto 0.9 % (0-4.4); Hematocrit 41.8 % (37.0-47.0); Immature Granulocyte Absolute 0.01 K/mm3 (0.00-0.031); Immature Granulocyte Percent A 0.2 % (0-0.5); Lymphocytes Absolute Auto 1.23 K/mm3 (0.9-3.2); Lymphocytes Percent Auto 19.3 % (18.3-44.2); Mean Corpuscular HGB Conc 33.5 g/dl (32-36); Mean Corpuscular Hemoglobin 30.5 pg (26-34); Mean Corpuscular Volume 91.1 fl (80-100); Mean Platelet Volume 9.7 fl (7.4-10.4); Monocytes Absolute Auto 0.5 K/mm3 (0.1-0.6); Monocytes Percent Auto 7.2 % (2.6-8.5); Neutrophils Absolute Auto 4.6 K/mm3 (1.3-6.7); Neutrophils Percent Auto 72.2 % (45.5-73.1); Platelet Count Result 144 k/mm3 (150-375); Red Blood Count 4.59 M/mm3 (4.2-5.4); Red Cell Distribution Width 13.2 % (11.5-14.5); White Blood Count 6.4 K/mm3 (4.5-10.0)
[2022-09-25 07:34] LABS: CRP 0.7 mg/dL (<1.0)
[2022-09-25 07:59] LABS: Iron 97 ug/dL (37-170)
[2022-09-25 08:09] LABS: Percent Iron Saturation 28 % (20-50)
[2022-09-25 08:19] LABS: Vitamin D 25 Hydroxy 43.4 ng/mL
== END 2022-09-25 06:55 | disposition home or self-care (01) ==
LOC: ANHLAB 06:55
PROVIDERS: PCP Family Medicine; Visit Provider Family Medicine
DX: R11.15 Cyclical vomiting syndrome unrelated to migraine (principal); E55.9 Vitamin D deficiency, unspecified; K52.9 Noninfective gastroenteritis and colitis, unspecified; R11.10 Vomiting, unspecified
CPT/HCPCS: 36415; 82306; 82728; 83540; 83550; 85025; 86140

== ENCOUNTER 2022-12-10 17:49 | Observation (INO) | payer OTHER, SELFPAY ==
--- NOTE | ~2022-12-10 | XR_ITS ---
EXAMINATION: XR chest 1V portable 12/11/2022 09:30 INDICATION: Cough and fever PROCEDURE: 2 view chest COMPARISON: 01/23/2018 FINDINGS: The lungs are clear. The cardiomediastinal silhouette is within normal limits. There are no pleural effusions. There is no pneumothorax suspected. IMPRESSION: 1: NO ACUTE CARDIOPULMONARY DISEASE. Reviewed, dictated and finalized at location B.
--- NOTE | ~2022-12-10 | US_ITS ---
US renal BI 12/11/2022 15:55 Procedure: Realtime transabdominal ultrasound of the kidneys and bladder. Indication: Pyelonephritis Comparison: 12/11/2019 Findings: Renal echotexture is normal bilaterally without hydronephrosis, contour deforming mass or r enal calculus. The right kidney measures 11.3 cm and left kidney measures 12.6 cm. Bladder within no rmal limits. Impression: 1: Unremarkable renal ultrasound. No stones, masses or hydronephrosis. Reviewed, dictated and finalized at location L. Impression: 1: Unremarkable renal ultrasound. No stones, masses or hydronephrosis.
--- NOTE | ~2022-12-10 | US_ITS ---
EXAMINATION: US OB follow up DATE: 12/10/2022 19:34 INDICATION: abd pain, 21 weeks . TECHNIQUE: Real-time ultrasound of the pelvis was performed. COMPARISON: None. FINDINGS: There is a single living fetus in vertex presentation, longitudinal lie. The placenta is posterior a nd well clear of the cervix. The cervix is closed measuring 3.8 cm. heart rate is 152 bpm. The deepest vertical amniotic fluid pocket measured 4.5 cm. IMPRESSION: Single living fetus in vertex presentation. Closed cervix measuring 3.8 cm. Normal amniotic fluid volume. Reviewed, dictated and finalized at location K.
[2022-12-10 17:54] VITALS: BP 128/78; PULSE 100; RESP 14; TEMP 36.7; O2SAT 99
--- NOTE | 2022-12-10 18:24 | ED.NAVMDI ---
HPI - Nausea/Vomiting/Diarrhea General Chief complaint: Nausea/Vomiting/Diarrhea Stated complaint: constipation/diarrhea/vomiting; 21 weeks preg Time Seen by Provider: 12/10/22 17:54 Source: patient Mode of arrival: ambulatory Limitations: no limitations History of Present Illness HPI Narrative: This is a 32-year-old female, about 21 weeks , that presents to the emergency department for nausea, vomiting and diarrhea. Reports about a week ago she is feeling unwell with a sore throat. She has had some vomiting and diarrhea ongoing today. Reports epigastric discomfort. She took some Tums with little relief. Her OB is at [facility]. She has had routine care. Denies fever, dysuria, pelvic cramping, or vaginal bleeding. Related Data Home Medications Medication Instructions Recorded Confirmed docosahexaenoic acid 200 mg mg PO 07/05/22 08/31/22 capsule ( DHA) Allergies Allergy/AdvReac Type Severity Reaction Status Date / Time No Known Allergies Allergy Verified 12/10/22 17:50 Review of Systems Review of Systems: CONSTITUTIONAL: Denies fever GASTROINTESTINAL: Reports abdominal pain, nausea, vomiting, and diarrhea. GENITOURINARY: Denies dysuria All systems reviewed & are unremarkable except as noted in HPI and below PMFSH Past Medical History Medical History Gastrocnemius muscle strain Genital HSV History of chronic diarrhea Irritable bowel syndrome Irritable bowel syndrome with diarrhea Nausea and vomiting in adult Surgical History Surgical History History of cholecystectomy History of colonoscopy 2020 [place] teeth removed Family History Family History Mother Cervical cancer Social History Social History Smoking status: Never smoker Second hand tobacco smoke exposure: No Alcohol intake: former Substance use: never Substance use type: does not use Lack of Transportation: No Lack of Food: Never True Current Housing: I Have Housing Concerned About Future Housing: No Difficulty Paying Gas/Electric Bills: No Difficulty Paying for Meds: No Currently Unemployed: No Education: Bachelor's Degree Difficulty w/ Childcare or Family Care: No Living arrangements: with family Gender identity (if verbalized by the patient): Female Spiritual care concerns: No Exam Narrative: GENERAL: Well-appearing, well-nourished, and in mild acute discomfort HEAD: Normocephalic, atraumatic. EYES: EOMI. CHEST: Clear to auscultation. No respiratory distress. No wheezes rales or rhonchi HEART: Regular rate and rhythm. No murmur heard. Normal peripheral pulses. ABDOMEN: Soft, nontender, nondistended, normal active bowel sounds. EXTREMITIES: Normal range of motion. No edema. SKIN: Warm, dry, no rash. NEURO: No focal deficits. Alert and oriented x3. PSYCH: Normal mood and affect Course Course Emergency Course: Patient updated on work-up and findings of possible UTI. She does report some urinary frequency. Will be given a dose of Rocephin. She reports continued nausea and some epigastric discomfort. Will consult OB for possible admission Initial consult was recommendation for further outpatient management. I did try to p.o. challenge patient, but she failed this. Is now vomiting again. OB does accept admission at this time 23:06. Will start patient on D5 LR and give Ondansetron as needed Consultations Consultation #1: Spoke with Dr. Sparks about patient and workup. Recommends further outpatient management at this time Date: 12/10/22 Time: 21:58 Vital Signs Vital signs: Vital Signs Temperature 98.0 F 12/10/22 17:54 Pulse Rate 100 12/10/22 17:54 Respiratory Rate 14 12/10/22 17:54 Blood Pressure 128/78 12/10/22 17:54 Pulse
[2022-12-10 18:31] LABS: Basophils Percent Auto 0.1 % (0.2-1.2); Eosinophils Percent Auto 0.2 % (0-4.4); Hematocrit 44.2 % (37.0-47.0); Hemoglobin 14.6 g/dL (12.0-15.0); Immature Granulocyte Absolute 0.04 K/mm3 (0.00-0.031); Immature Granulocyte Percent A 0.4 % (0-0.5); Lymphocytes Absolute Auto 0.55 K/mm3 (0.9-3.2); Lymphocytes Percent Auto 5.6 % (18.3-44.2); Mean Corpuscular Hemoglobin 30.8 pg (26-34); Mean Corpuscular Volume 93.2 fl (80-100); Mean Platelet Volume 10.6 fl (7.4-10.4); Monocytes Absolute Auto 0.5 K/mm3 (0.1-0.6); Monocytes Percent Auto 5.1 % (2.6-8.5); Neutrophils Absolute Auto 8.6 K/mm3 (1.3-6.7); Neutrophils Percent Auto 88.6 % (45.5-73.1); Platelet Count Result 165 k/mm3 (150-375); Red Blood Count 4.74 M/mm3 (4.2-5.4); Red Cell Distribution Width 13.3 % (11.5-14.5); White Blood Count 9.7 K/mm3 (4.5-10.0)
[2022-12-10] MEDS: METOCLOPRAMIDE HCL INJ 10 MG/2 ML VIAL IV PUSH (18:33)
[2022-12-10] MEDS: FAMOTIDINE 20 MG/2 ML VIAL IV PUSH (18:33)
[2022-12-10] MEDS: diphenhydrAMINE HCl INJ 50 MG/ML VIAL 25 MG IV PUSH (18:33)
[2022-12-10] MEDS: SODIUM CHLORIDE 0.9% IV 1,000 ML 999 ML IV CONT ×2 (18:33→20:20)
[2022-12-10 19:06] LABS: Influenza A QL RT-PCR Negative (Negative); Influenza B QL RT-PCR Negative (Negative); SARS-CoV-2 RNA PCR Negative (Negative)
[2022-12-10 19:09] LABS: Alanine Aminotransferase 17 U/L (6-35); Albumin Level 3.8 g/dL (3.5-5.1); Alkaline Phosphatase 71 U/L (38-126); Anion Gap 6 mmol/L (8-16); Aspartate Amino Transferase 32 U/L (14-36); Bilirubin,Total 0.6 mg/dL (0.2-1.3); Blood Urea Nitrogen 6 mg/dL (7-17); Calcium 8.8 mg/dL (8.4-10.2); Carbon Dioxide 21 mmol/L (22-30); Chloride 107 mmol/L (98-107); Estimated CRCL calculation 167 ml/min; Estimated Glomerular Filt Rate > 60; Glucose 96 mg/dL (65-110); Lipase 99 U/L (23-300); Potassium 3.7 mmol/L (3.4-5.0); Sodium 134 mmol/L (137-145)
[2022-12-10] MEDS: ONDANSETRON INJ 4 MG/2 ML VIAL IV PUSH (20:20)
[2022-12-10 20:22] LABS: Appearance Urine Cloudy (Clear); Bacteria Urine 1+ /hpf; Bilirubin Urine Negative (Negative); Blood Urine Negative (Negative); Color Urine Yellow (Yellow); Glucose Urine UA Negative (Negative); Ketones Urine 4+ mg/dL (Negative); Leukocyte Esterase Ur 1+ LEU/UL (Negative); Nitrate Urine Negative (Negative); Non Pathogenic Casts 0-2; Protein Urine Negative (Negative); RBC Urine 0-2 /hpf (0-2); Specific Grav Ur 1.024 (1.001-1.035); Squamous Epithelial Cell Urine Occasional /hpf (Few); Urobilinogen Urine 0.2 mg/dL (<2.0); pH Urine 5.5 (5.0-9.0)
[2022-12-10 20:25] VITALS: BP 110/65; PULSE 96; O2SAT 99
[2022-12-10 20:25] LABS: Add Urine Microscopic? YES
[2022-12-11] VITALS (14 sets, daily range): BP systolic 97–117; BP diastolic 53–63; PULSE 82–102; RESP 15–20; TEMP 36.2–38.2
--- NOTE | 2022-12-11 00:25 | PC.NURSE ---
Patient arrived via wheelchair from emergency room for overnight observation. Patient denies pain at time of arrival to OB unit and was alert and oriented. Maternal temperature on arrival was 100.8, other vital signs WNL.
--- NOTE | 2022-12-11 00:34 | PC.NURSE ---
Clarified orders with Dr. Sparks. Patient complaint of continued diarrhea while in emergency room. Order to change Promethazine HCL order from rectal suppository to IV push and 2mg Loperamide PO PRN ordered.
[2022-12-11] MEDS: DEXTROSE 5%/LACTATED RINGERS 1,000 ML 125 ML IV CONT ×3 (00:42→18:39)
[2022-12-11] MEDS: PROMETHAZINE HCL 25 MG/ML AMPUL 12.5 MG IV PUSH ×2 (00:49→08:20)
[2022-12-11] MEDS: LOPERAMIDE HCL 2 MG CAPSULE PO ×2 (00:55→08:13)
[2022-12-11] MEDS: ACETAMINOPHEN 500 MG TABLET 1000 MG PO (01:13)
[2022-12-11 05:06] LABS: Eosinophils Percent Auto 0.3 % (0-4.4); Hematocrit 36.8 % (37.0-47.0); Hemoglobin 12.4 g/dL (12.0-15.0); Immature Granulocyte Absolute 0.01 K/mm3 (0.00-0.031); Immature Granulocyte Percent A 0.3 % (0-0.5); Lymphocytes Absolute Auto 0.41 K/mm3 (0.9-3.2); Lymphocytes Percent Auto 10.5 % (18.3-44.2); Mean Corpuscular HGB Conc 33.7 g/dl (32-36); Mean Corpuscular Hemoglobin 31.3 pg (26-34); Mean Corpuscular Volume 92.9 fl (80-100); Mean Platelet Volume 9.8 fl (7.4-10.4); Monocytes Absolute Auto 0.1 K/mm3 (0.1-0.6); Monocytes Percent Auto 3.3 % (2.6-8.5); Neutrophils Absolute Auto 3.3 K/mm3 (1.3-6.7); Neutrophils Percent Auto 85.6 % (45.5-73.1); Platelet Count Result 112 k/mm3 (150-375); Red Blood Count 3.96 M/mm3 (4.2-5.4); Red Cell Distribution Width 13.4 % (11.5-14.5); White Blood Count 3.9 K/mm3 (4.5-10.0)
[2022-12-11 08:01] LABS: Basophils Percent Auto 0.3 % (0.2-1.2); Eosinophils Percent Auto 0.3 % (0-4.4); Hematocrit 35.4 % (37.0-47.0); Hemoglobin 11.9 g/dL (12.0-15.0); Immature Granulocyte Absolute 0.02 K/mm3 (0.00-0.031); Immature Granulocyte Percent A 0.5 % (0-0.5); Lymphocytes Absolute Auto 0.41 K/mm3 (0.9-3.2); Lymphocytes Percent Auto 10.7 % (18.3-44.2); Mean Corpuscular HGB Conc 33.6 g/dl (32-36); Mean Corpuscular Hemoglobin 31.4 pg (26-34); Mean Corpuscular Volume 93.4 fl (80-100); Mean Platelet Volume 9.8 fl (7.4-10.4); Monocytes Absolute Auto 0.2 K/mm3 (0.1-0.6); Monocytes Percent Auto 5.7 % (2.6-8.5); Neutrophils Absolute Auto 3.2 K/mm3 (1.3-6.7); Neutrophils Percent Auto 82.5 % (45.5-73.1); Platelet Count Result 112 k/mm3 (150-375); Red Blood Count 3.79 M/mm3 (4.2-5.4); Red Cell Distribution Width 13.4 % (11.5-14.5); White Blood Count 3.8 K/mm3 (4.5-10.0)
[2022-12-11 08:13] LABS: Alanine Aminotransferase 14 U/L (6-35); Albumin Level 2.6 g/dL (3.5-5.1); Alkaline Phosphatase 49 U/L (38-126); Anion Gap 3 mmol/L (8-16); Aspartate Amino Transferase 22 U/L (14-36); Bilirubin,Total 0.5 mg/dL (0.2-1.3); Blood Urea Nitrogen 4 mg/dL (7-17); Calcium 7.4 mg/dL (8.4-10.2); Carbon Dioxide 20 mmol/L (22-30); Chloride 110 mmol/L (98-107); Estimated CRCL calculation 213 ml/min; Estimated Glomerular Filt Rate > 60; Glucose 97 mg/dL (65-110); Potassium 3.1 mmol/L (3.4-5.0); Sodium 133 mmol/L (137-145)
[2022-12-11] MEDS: POTASSIUM CHLORIDE INJ 40 MEQ in SODIUM CHLORIDE 0.9% IV 500 ML 130 MEQ IVPB (09:33)
[2022-12-11] MEDS: FAMOTIDINE 20 MG/2 ML VIAL IV PUSH ×2 (09:33→20:57)
[2022-12-11] MEDS: METOCLOPRAMIDE HCL INJ 10 MG/2 ML VIAL IV PUSH ×2 (09:33→18:39)
[2022-12-11] MEDS: NITROFURANTOIN MONOHYD MACROCR 100 MG CAP PO (09:33)
--- NOTE | 2022-12-11 10:26 | PM.IMHP ---
H&P: HPI History of Present Illness Date/Time: 12/11/22 10:26 Chief Complaint: Nausea /vomiting and diarrhea Narrative: She is 21 week. She receives care at [facility]. She was admitted from ED. She presented to ED yesterday with c/o mid epigastric discomfort, persistent nausea/vomiting and diarrhea which started yesterday morning. No spotting. In ED she was dehydrated. She received 2L NS and had antiemetics, famotidine, reglan, and IV antibiotics due to UA. No relief of nausea and vomiting. History is significant for long history of cyclic vomiting,IBS w diarrhea. She denied fever at home. When she arrived to and she did have a low grade temp. She denied dysuria or frequency. Denies back pain. She also has had URI symptoms for over a week and continue to have a cough with green sputum production. Review of Systems Review of Systems: All systems reviewed & are unremarkable except as noted in HPI and below Constitutional: Constitutional: Reports malaise Eyes: Eyes: Reports no additional eye complaints ENT: Reports system reviewed and no additional complaints, except as documented Cardiovascular: Cardiovascular: Reports no additional cardiovascular complaints Respiratory: Respiratory: Reports no additional respiratory complaints Gastrointestinal: Gastrointestinal: Reports as per HPI Genitourinary: Genitourinary: Reports no additional female genitourinary complaints Musculoskeletal: Musculoskeletal: Reports no additional musculoskeletal complaints Neurologic: Reports system reviewed and no additional complaints, except as documented Psychiatric: Psychiatric: Reports no additional psychiatric complaints Hematologic/Lymphatic: Hematologic/Lymphatic: Reports no additional hematologic/lymphatic complaints PMFSH Past Medical History Medical History Gastrocnemius muscle strain Genital HSV History of chronic diarrhea Irritable bowel syndrome Irritable bowel syndrome with diarrhea Nausea and vomiting in adult Surgical History Surgical History History of cholecystectomy History of colonoscopy 2020 [place] teeth removed Family History Family History Mother Cervical cancer Social History Social History Smoking status: Never smoker Second hand tobacco smoke exposure: No Alcohol intake: former Substance use: never Substance use type: does not use Lack of Transportation: No Lack of Food: Never True Current Housing: I Have Housing Concerned About Future Housing: No Difficulty Paying Gas/Electric Bills: No Difficulty Paying for Meds: No Currently Unemployed: No Education: Bachelor's Degree Difficulty w/ Childcare or Family Care: No Living arrangements: with family Gender identity (if verbalized by the patient): Female Spiritual care concerns: No Meds Home Medications and Allergies Home Medications Medication Instructions Recorded Confirmed Type prenat.vits,jami,yye-[id number] 1 tablet PO DAILY 12/11/22 12/11/22 History Allergies Allergy/AdvReac Type Severity Reaction Status Date / Time No Known Allergies Allergy Verified 12/10/22 17:50 Vital Signs Vital Signs - 24 hr 12/10/22 17:54 12/10/22 20:25 12/11/22 00:27 Temperature 98.0 F Pulse Rate 100 96 102 H Respiratory Rate 14 Blood Pressure 128/78 110/65 117/62 Pulse Oximetry 99 99 Oxygen Delivery 12/11/22 03:06 12/11/22 07:17 12/11/22 01:13 Temperature 100.8 F H Pulse Rate 88 91 Respiratory Rate Blood Pressure 108/54 L 97/53 L Pulse Oximetry Oxygen Delivery 12/11/22 00:40 12/11/22 00:35 12/11/22 02:02 Temperature 100.8 F H 100.1 F H Pulse Rate Respiratory Rate 16 Blood Pressure Pulse Oximetry Oxygen Delivery Room A
--- NOTE | 2022-12-11 12:42 | PM.IMCN ---
Assessment and Plan Assessment and plan (1) UTI (urinary tract infection): Code(s): N39.0 - Urinary tract infection, site not specified Status: Acute Assessment and Plan: Urine culture pending. Change Macrobid back to ceftriaxone due to systemic symptoms nausea vomiting and fever. Renal ultrasound ordered and is pending. (2) Intractable nausea and vomiting: Code(s): R11.2 - Nausea with vomiting, unspecified Status: Acute Assessment and Plan: Continue Reglan and promethazine, continue to advance diet as tolerated, continue IV fluids until patient able to take adequate oral intake. (3) Thrombocytopenia affecting : Code(s): O99.119 - Other diseases of the blood and blood-forming organs and certain disorders involving the immune mechanism complicating , unspecified trimester; D69.6 - Thrombocytopenia, unspecified Status: Acute Assessment and Plan: Minor drop platelets from 165 to 112. No current signs of bleeding. This may be a reaction to inadequately treated urinary tract infection. Check daily labs and monitor for bleeding. (4) Neutropenia: Code(s): D70.9 - Neutropenia, unspecified Status: Acute Assessment and Plan: Depressed white blood cell count possibly related to inadequately treated urinary tract infection. Will give ceftriaxone IV 2 g daily. Monitor with daily labs. Treat fever with acetaminophen. (5) Irritable bowel syndrome: Code(s): K58.9 - Irritable bowel syndrome without diarrhea Status: Acute Assessment and Plan: Underlying irritable bowel likely exacerbates or is the primary cause of patient's nausea vomiting diarrhea and inability to maintain adequate oral intake. Supportive care is recommended and appears optimized at this time. GI has been consulted by primary OB Team. Appreciate recommendations. HPI Data of Consult Consult date: 12/11/22 Requesting Physician: Wil Sparks MD Primary Care Provider: Joy Gordon MD Consult Narrative Reason for consult: Medical management of mild thrombocytopenia and mild neutropenia Narrative: Meme Loyola is a 32 year old female patient currently 21 weeks admitted primarily by OB for intractable nausea and vomiting and in the setting of a UTI. When patient was admitted she had normal CBC but she subsequently developed mild neutropenia and mild thrombocytopenia. In the emergency department patient was given dose of ceftriaxone for an apparent UTI. OB changed prescription to Macrobid but patient is having systemic symptoms vomiting and fever as well as these new lab changes. Hospitalist team was asked to consult for medical management. Patient is on scheduled Reglan and p.r.n. promethazine for her nausea vomiting. She is also receiving loperamide for diarrhea. Patient has a history of IBS with alternating constipation and diarrhea. She reports her symptoms started yesterday morning. They became severe throughout the day so patient went to emergency yesterday evening where she was admitted when she could not maintain oral intake. Patient is on IV fluids with orders to advanced diet as tolerated. Thus far patient has only been able to tolerate some ice chips and 2 crackers. Patient had gallbladder removed previously for similar symptoms. She denies any vaginal bleeding uterine cramping or other concerns at this time. Review of Systems Review of Systems: All systems reviewed & are unremarkable except as noted in HPI and below PMFSH Past Medical History Medical History Gastrocnemius muscle strain Genital HSV History of chronic diarrhea Irritable bowel syndrome Irritable bowel syndrome with diarrhea Nausea and vomiting in adult Surgical History Surgical History History of cholecystectomy History of colonoscopy
[2022-12-11] MEDS: cefTRIAXone 2 GM/NS 100 ML 2 GM/100 ML BAG IVPB (20:57)
[2022-12-12] VITALS (8 sets, daily range): BP systolic 94–129; BP diastolic 43–61; PULSE 68–94; RESP 15–18; TEMP 36.1–36.7; O2SAT 95–99; BMI 34.4
[2022-12-12] MEDS: METOCLOPRAMIDE HCL INJ 10 MG/2 ML VIAL IV PUSH ×2 (00:15→06:02)
[2022-12-12] MEDS: DEXTROSE 5%/LACTATED RINGERS 1,000 ML 125 ML IV CONT (04:53)
[2022-12-12 05:19] LABS: Basophils Percent Auto 0.3 % (0.2-1.2); Eosinophils Percent Auto 1.1 % (0-4.4); Hematocrit 34.4 % (37.0-47.0); Hemoglobin 11.4 g/dL (12.0-15.0); Immature Granulocyte Absolute 0.02 K/mm3 (0.00-0.031); Immature Granulocyte Percent A 0.6 % (0-0.5); Lymphocytes Percent Auto 22.3 % (18.3-44.2); Mean Corpuscular HGB Conc 33.1 g/dl (32-36); Mean Corpuscular Hemoglobin 31.2 pg (26-34); Mean Corpuscular Volume 94.2 fl (80-100); Mean Platelet Volume 10.1 fl (7.4-10.4); Monocytes Absolute Auto 0.3 K/mm3 (0.1-0.6); Monocytes Percent Auto 7.5 % (2.6-8.5); Neutrophils Absolute Auto 2.4 K/mm3 (1.3-6.7); Neutrophils Percent Auto 68.2 % (45.5-73.1); Platelet Count Result 109 k/mm3 (150-375); Red Blood Count 3.65 M/mm3 (4.2-5.4); Red Cell Distribution Width 13.7 % (11.5-14.5); White Blood Count 3.6 K/mm3 (4.5-10.0)
[2022-12-12 05:32] LABS: Alanine Aminotransferase 34 U/L (6-35); Albumin Level 2.6 g/dL (3.5-5.1); Alkaline Phosphatase 70 U/L (38-126); Anion Gap 3 mmol/L (8-16); Aspartate Amino Transferase 64 U/L (14-36); Bilirubin,Total 0.5 mg/dL (0.2-1.3); Blood Urea Nitrogen 2 mg/dL (7-17); Calcium 7.8 mg/dL (8.4-10.2); Carbon Dioxide 21 mmol/L (22-30); Chloride 109 mmol/L (98-107); Estimated CRCL calculation 167 ml/min; Estimated Glomerular Filt Rate > 60; Glucose 93 mg/dL (65-110); Potassium 3.6 mmol/L (3.4-5.0); Sodium 133 mmol/L (137-145)
--- NOTE | 2022-12-12 07:31 | PC.NURSE ---
heart tones doppled at 0710. FHT 150.
[2022-12-12] MEDS: FAMOTIDINE 20 MG/2 ML VIAL IV PUSH (09:23)
[2022-12-12] MEDS: MULTIVIT/MIN/PREN/FOL AC/IRON TABLET 1 TAB PO (09:23)
--- NOTE | 2022-12-12 09:35 | PC.NURSE ---
Dr. Sparks at bedside. Discussed lab results with patient and plan of care. Awaiting hospitalist orders. Patient to stay on OB unit at this time. Patient has no questions at this time.
--- NOTE | 2022-12-12 09:48 | PM.OBPNVD ---
OB - PN: Subj Subjective Date/time seen: 12/12/22 09:48 Interval history: She feels better, she has tolerated regular diet, loose stools improving. No back pain. OB - PN: Obj Data Labs 12/12/22 05:09 12/12/22 05:09 Labs: Laboratory Results - last 24 hr 12/12/22 05:09 WBC 3.6 L RBC 3.65 L Hgb 11.4 L Hct 34.4 L MCV 94.2 MCH 31.2 MCHC 33.1 RDW 13.7 Plt Count 109 L MPV 10.1 Immature Gran % (Auto) 0.6 H Neut % (Auto) 68.2 Lymph % (Auto) 22.3 [place] % (Auto) 7.5 Eos % (Auto) 1.1 Baso % (Auto) 0.3 Lymph # (Auto) 0.80 L [place] # (Auto) 0.3 Eos # (Auto) 0.0 Baso # (Auto) 0.0 Abs Immat Gran (auto) 0.02 Absolute Neuts (auto) 2.4 Absolute Nucleated RBC 0.0 Nucleated RBC % 0.0 Sodium 133 L Potassium 3.6 Chloride 109 H Carbon Dioxide 21 L Anion Gap 3 L BUN 2 L Creatinine 0.40 L Estim Creat Clear Calc 167 Estimated GFR > 60 Glucose 93 Calcium 7.8 L Total Bilirubin 0.5 AST 64 H ALT 34 Alkaline Phosphatase 70 Total Protein 6.0 L Albumin 2.6 L Imaging Radiologist's impression: Impressions Renal Ultrasound 12/12/22 08:26 Impression: 1: Unremarkable renal ultrasound. No stones, masses or hydronephrosis. OB - PN A/P Assessment and Plan (1) UTI (urinary tract infection): Code(s): N39.0 - Urinary tract infection, site not specified Status: Acute Assessment and Plan: Urine culture pending. Continue antibiotics. (2) Thrombocytopenia affecting : Code(s): O99.119 - Other diseases of the blood and blood-forming organs and certain disorders involving the immune mechanism complicating , unspecified trimester; D69.6 - Thrombocytopenia, unspecified Status: Acute Assessment and Plan: Disagree with hospitalist etiology of thrombocytopenia. The patient did get IV antibiotics in ED and the initial low platelet was done prior to starting the Macrobid. Also pt without CVA tenderness and no signs of inflamed kidney on renal ultrasound. Patient states she has had a history of low platelets with prior , this may be a chronic condition. Management per hospitalist. (3) Neutropenia: Code(s): D70.9 - Neutropenia, unspecified Status: Acute Assessment and Plan: Per above. (4) Nausea and vomiting in adult: Code(s): R11.2 - Nausea with vomiting, unspecified Status: Acute Assessment and Plan: Improved, consistent with gastroenteritis. Tolerating regular food. Time Spent With Patient Time: Total time spent is greater than 50% in coordination of care (as documented) at patient's floor/unit and/or counseling patient: Exam Const: General: no acute distress Resp: Effort & Inspection: normal respiratory effort GI: Other: gravid Neuro: General: oriented to person, oriented to place and oriented to time Extrem: General: normal to inspection
--- NOTE | 2022-12-12 12:09 | PM.IMPN ---
Progress Note: A&P Assessment and Plan (1) UTI (urinary tract infection): Code(s): N39.0 - Urinary tract infection, site not specified Status: Acute Assessment and Plan: would recommend changing to omnicef on dc (2) Intractable nausea and vomiting: Code(s): R11.2 - Nausea with vomiting, unspecified Status: Acute Assessment and Plan: improved tolerating diet (3) Thrombocytopenia affecting : Code(s): O99.119 - Other diseases of the blood and blood-forming organs and certain disorders involving the immune mechanism complicating , unspecified trimester; D69.6 - Thrombocytopenia, unspecified Status: Acute Assessment and Plan: Looked back at old record platelet count similar during last likely not concerning will check DIc panel if negative recommend monitoring in a few days which can be done as outpatient no bleeding, no clotting symptoms other consideration is nitrofurantoin can cause anemia/pt issues also patient received significant ivf which can cause dilution recheck cbc this afternoon - if improving, can likely be dc and would fu labs within next couple days (4) Neutropenia: Code(s): D70.9 - Neutropenia, unspecified Status: Acute Assessment and Plan: ? etiology same as above recheck cbc in few days (5) Irritable bowel syndrome: Code(s): K58.9 - Irritable bowel syndrome without diarrhea Status: Acute Assessment and Plan: likely cause of nvd - now resolved Subjective Date/time seen: 12/12/22 12:09 Interval history: feeling better Exam Narrative: GENERAL: Somewhat ill appearing, alert and oriented. She is pleasant and conversant in full sentences. HEENT: Pupils are equally round and briskly reactive to light. Extraocular muscles are intact. Oral mucous membranes are moist without lesions. NECK: The patient has no noted JVD. No adenopathy is appreciated. CHEST/LUNGS: Lungs are clear bilaterally without rhonchi, rales, or wheezes. There is no subcutaneous air appreciated. There is no tenderness to the chest wall. HEART: The patient has a regular rate and rhythm. No murmurs, rubs, or gallops are appreciated. Distal pulses are 2+. No carotid bruits appreciated. ABDOMEN: The patient?s abdomen is soft, nontender, and nondistended. Bowel sounds are positive. No peritoneal signs. Uterine fundus at level of umbilicus. No uterine tenderness. EXTREMITIES: The patient has no peripheral edema. There is no focal long bone tenderness or deformity. SKIN: The patient?s skin is warm and dry, without rashes or lesions. PSYCHIATRIC: The patient has normal mental status and has an appropriate affect. NEUROLOGIC: There are no gross deficits to the cranial nerves. Patient ambulates with steady gait. Objective Data Vital Signs Vital Signs: Vital Signs - 24 hr 12/11/22 18:39 12/12/22 00:16 12/12/22 04:55 Temperature Pulse Rate 82 68 73 Respiratory Rate Blood Pressure 104/55 L 94/43 L 95/48 L Pulse Oximetry 12/12/22 07:11 12/12/22 07:12 12/12/22 11:02 Temperature Pulse Rate 75 Respiratory Rate Blood Pressure 114/58 L Pulse Oximetry 99 95 12/12/22 11:03 12/11/22 16:00 12/11/22 18:30 Temperature 98.9 F 97.2 F L Pulse Rate 73 Respiratory Rate 20 20 Blood Pressure 129/61 Pulse Oximetry 12/12/22 00:16 12/12/22 07:15 12/12/22 11:05 Temperature 98.0 F 97 F L 97.7 F Pulse Rate Respiratory Rate 18 15 15 Blood Pressure Pulse Oximetry Intake/Output Intake/Output: Intake & Output 12/09/22 12/10/22 12/11/22 12/12/22 23:59 23:59 23:59 23:59 Intake Total 2049 2049 1000 Output Total 170 1400 Balance 2049 350 -400 Meds/Results Medications: Active Medications Generic Name Dose Route Start Last Admin Trade Name Freq PRN Reason Stop Dose Admin Famotidine 20 mg 12/11/22 09:00 12/12/22 09:23 Famotidine 20 Mg/2 Ml Vial IV PUSH 20 mg
[2022-12-12 12:33] LABS: Basophils Percent Auto 0.2 % (0.2-1.2); Eosinophils Percent Auto 0.5 % (0-4.4); Hematocrit 37.8 % (37.0-47.0); Hemoglobin 12.1 g/dL (12.0-15.0); Immature Granulocyte Absolute 0.03 K/mm3 (0.00-0.031); Immature Granulocyte Percent A 0.7 % (0-0.5); Lymphocytes Absolute Auto 0.86 K/mm3 (0.9-3.2); Lymphocytes Percent Auto 19.8 % (18.3-44.2); Mean Corpuscular Hemoglobin 30.9 pg (26-34); Mean Corpuscular Volume 96.7 fl (80-100); Mean Platelet Volume 9.7 fl (7.4-10.4); Monocytes Absolute Auto 0.2 K/mm3 (0.1-0.6); Monocytes Percent Auto 4.6 % (2.6-8.5); Neutrophils Absolute Auto 3.2 K/mm3 (1.3-6.7); Neutrophils Percent Auto 74.2 % (45.5-73.1); Platelet Count Result 120 k/mm3 (150-375); Red Blood Count 3.91 M/mm3 (4.2-5.4); Red Cell Distribution Width 13.7 % (11.5-14.5); White Blood Count 4.3 K/mm3 (4.5-10.0)
[2022-12-12 12:44] LABS: Magnesium 1.8 mg/dL (1.6-2.3)
--- NOTE | 2022-12-12 13:19 | WPDGICN ---
Assessment and Plan Assessment and plan (1) Nausea & vomiting: Code(s): R11.2 - Nausea with vomiting, unspecified Status: Acute Assessment and Plan: known history of cyclic vomiting had EGD earlier this year already feeling better with supportive care tolerating diet she is not using elavil while she is (2) Thrombocytopenia affecting : Code(s): O99.119 - Other diseases of the blood and blood-forming organs and certain disorders involving the immune mechanism complicating , unspecified trimester; D69.6 - Thrombocytopenia, unspecified Status: Acute Assessment and Plan: monitor (3) Diarrhea: Code(s): R19.7 - Diarrhea, unspecified Status: Acute Assessment and Plan: improved (4) UTI (urinary tract infection): Code(s): N39.0 - Urinary tract infection, site not specified Status: Acute Assessment and Plan: on abx GI Consult Note Consult date/time: 12/12/22 13:19 Reason for consult: nausea and vomiting, diarrhea HPI: Meme Loyola is a 32 year old female who is?21 week . She receives care at [facility]. I have seen here in clinic because?long standing GI issues for over 14 years, s/p cholecystectomy. About 3 years ago she saw another GI specialist, had positive marker C diff in stool and treated, had elevated calprotectin but colonoscopy was unremarkable. When she was with her first one, symptoms went away but after delivery started with similar symptoms and treated empirically with xifaxan. She has been diagnosed with cyclic vomiting syndrome after having severe abdominal pain and taking hot shower/bath with only minimal relief, 04/2022 had normal EGD, I started her on elavil as prophylaxis. She came here with new onset of nausea and vomiting but this episode is different from normal flares, also had diarrhea (denies sick contacts). Also noted to have mild thrombocytopenia and UTI (started on antibiotic). She is feeling better today with no more nausea, no more diarrhea. Review of Systems Constitutional: Constitutional: Denies chills Eyes: Eyes: Denies blurry vision ENT: Reports Normal hearing present, Denies headache(s) and Denies neck pain Cardiovascular: Cardiovascular: Denies chest pain and Denies dyspnea Respiratory: Respiratory: Denies dyspnea Gastrointestinal: Gastrointestinal: Reports diarrhea, Reports nausea and Reports vomiting Genitourinary: Genitourinary: Denies dysuria Musculoskeletal: Musculoskeletal: Denies neck pain Integumentary/Breasts: Skin/Breast: Denies dry skin Neurologic: Reports Normal hearing present, Denies headache(s) and Denies weakness Psychiatric: Psychiatric: Denies anxiety Endocrine: Endocrine: Denies change in body appearance [facility] Past Medical History Medical History Gastrocnemius muscle strain Genital HSV History of chronic diarrhea Irritable bowel syndrome Irritable bowel syndrome with diarrhea Nausea and vomiting in adult Surgical History Surgical History History of cholecystectomy History of colonoscopy 2020 [place] teeth removed Family History Family History Mother Cervical cancer Social History Social History Smoking status: Never smoker Second hand tobacco smoke exposure: No Alcohol intake: former Substance use: never Substance use type: does not use Lack of Transportation: No Lack of Food: Never True Current Housing: I Have Housing Concerned About Future Housing: No Difficulty Paying Gas/Electric Bills: No Difficulty Paying for Meds: No Currently Unemployed: No Education: Bachelor's Degree Difficulty w/ Childcare or Family Care: No Living arrangements: with fam
[2022-12-12 13:22] LABS: Partial Thromboplastin Time 26.3 SECONDS (22.3-36.8)
[2022-12-12 13:23] LABS: Fibrinogen 555 mg/dl (215-510)
[2022-12-12 13:36] LABS: Prothrombin Time 13.5 Seconds (11.1-14.7)
[2022-12-12 13:40] LABS: D Dimer 1.41 ug/mL (<0.48)
--- NOTE | 2022-12-12 14:19 | PC.NURSE ---
Spoke with Dr. Samaniego regarding patients lab results. Patient ok to be d/c per provider order.
--- NOTE | 2022-12-12 14:27 | PC.NURSE ---
Spoke with Dr. Sparks regarding patients lab work. Ok to discharge from provider standpoint. Dr. Sparks requests that patient follow up with her primary care provider regarding labs.
--- NOTE | 2022-12-29 10:46 | PM.OBDSVD ---
DS: Admitting Diagnosis Discharge Date 12/12/22 Admitting Diagnosis Nausea and vomiting and diarrhea Dehydration DS: Discharge Diagnosis Discharge Diagnosis (1) Nausea & vomiting: Code(s): R11.2 - Nausea with vomiting, unspecified Status: Acute (2) UTI (urinary tract infection): Code(s): N39.0 - Urinary tract infection, site not specified Status: Acute (3) Thrombocytopenia affecting : Code(s): O99.119 - Other diseases of the blood and blood-forming organs and certain disorders involving the immune mechanism complicating , unspecified trimester; D69.6 - Thrombocytopenia, unspecified Status: Acute (4) Diarrhea: Code(s): R19.7 - Diarrhea, unspecified Status: Acute OB - DS: Summary Hospital Course Hospital Course: she was admitted from the ER due to persistent nausea and vomiting in the ER she did receive IV fluids she did get D5 fluids when she arrived to Labor and delivery. Her lab significant for showing thrombocytopenia. She was continued antibiotics on Labor and delivery. She was also given antiemetics. Due to the thrombocytopenia a hospitalist consult. She also had GI consultation due to history of chronic nausea vomiting and diarrhea. Her platelets remained low. Though she have a history of low platelets upon of her old records. She did not have any bleeding abnormalities. She did have a and check 6 for a which were normal.She had a CXR performed also to rule out pneumonia which was normal. Renal ultrasound normal. Prior to discharge she regular the diarrhea had improved. She was instructed to continue adequate hydration oral intake and to follow with her primary OB care provider. OB Procedures : Ultrasound OB Procedures Intrapartum: Other (none) OB Procedures: : None Time Spent with Patient Time attestation: Total time spent providing and/or coordinating discharge services: Exam Const: General: comfortable and no acute distress Resp: Effort & Inspection: normal respiratory effort GI: Other: gravid nontender Extrem: General: normal to inspection and no calf tenderness Psych: Appearance: grossly normal Discharge Plan Discharge Attending physician on discharge: Wil Sparks Consulting providers: Rodrigo Alexandra; Bebo Kan; Donell Knowles; Jose Roberto Turner; Cale Samaniego Discharging Clinician: Wil Sparks Patient Disposition: Home, Self-Care Activity: as tolerated Diet: as tolerated Discharge Instructions: OB ANTEPARTUM DISCHARGE INSTRUCTIONS This information is given to help you properly care for yourself at home after your discharge from the hospital. Follow these instructions until your doctor tells you otherwise. DIET: Eat Three Well Balanced Meals per Day Small Frequent Feedings Drink at Least Eight 8-Ounce Glasses of Caffeine-Free Beverages Daily [place] Advance As Tolerated ACTIVITY: As Tolerated FOLLOW-UP CARE: Keep Next Scheduled Appointment To see your primary care provider Valuables released to patient or family? N/A Medications from home returned to patient? N/A I Have Received Information Regarding [facility] IF YOU HAVE ANY QUESTIONS REGARDING THESE INSTRUCTIONS, PLEASE CALL [phone]. IF PROBLEMS ARISE, CALL YOUR PROVIDER. IF EMERGENCY CARE IS NEEDED, [facility] EMERGENCY ROOM IS AVAILABLE 24 HOURS A DAY. Patient Instructions: Antibiotic Form Stand Alone Forms: General Discharge Information Follow-up/Referrals: Joy Gordon MD [Primary Care Provider] - Discharge Medications: Continued prenat.vits,jami,pzi-mzik-ehyvu Tablet 1 tablet PO DAILY Date of admission: 12/11/22 00:25 Primary Care Provider: Joy Gordon Admitting Provider: Wil Sparks Attending physician on admission: Wil Sparks Condition: Stable
== END 2022-12-12 15:14 | disposition home or self-care (01) ==
LOC: ANHED 23:07 → ANHOBPP 12-12 09:04
PROVIDERS: Chiropractor; Nurse Practitioner; Admitting Provider Obstetrics & Gynecology; Emergency Provider Physician Assistant; PCP Family Medicine; Visit Provider Obstetrics & Gynecology
DX: O23.42 Unspecified infection of urinary tract in pregnancy, second trimester (principal); O21.2 Late vomiting of pregnancy; O99.612 Diseases of the digestive system complicating pregnancy, second trimester; K58.0 Irritable bowel syndrome with diarrhea; O26.892 Other specified pregnancy related conditions, second trimester; R50.9 Fever, unspecified; O99.112 Other diseases of the blood and blood-forming organs and certain disorders involving the immune mechanism complicating pregnancy, second trimester; R05.9 Cough, unspecified; D70.9 Neutropenia, unspecified; Z3A.21 21 weeks gestation of pregnancy
CPT/HCPCS: 36415; 71045; 76775; 76816; 80053; 81001; 83690; 83735; 85025; 85380; 85384; 85610; 85730; 87040; 87086; 87636; 96361; 96365; 96374; 96375; 96376; 99285; A9270; G0378; J0696; J1200; J2405; J2550; J2765; J3480; J7030; J7040; J7121

== ENCOUNTER 2023-02-22 08:22 | Emergency (ER) | payer OTHER, SELFPAY ==
[2023-02-22 08:32] VITALS: BP 105/58; PULSE 79; RESP 20; TEMP 36.8; O2SAT 100
--- NOTE | 2023-02-22 09:08 | ED.URI ---
HPI - URI/Sore Throat General Chief Complaint: Upper Respiratory Infection Stated Complaint: Covid exposure History of Present Illness HPI Narrative: 32-year-old female presented for complaint of sinus congestion and drainage, sore throat, mild cough for about 5 days. Reports occasional right sided headache and ear pain. She endorses symptoms started after contact with her parents, who subsequently tested positive for COVID 3 days later. Patient denies shortness of breath, wheezing, fever or lethargy. she attempted to take Sudafed but it caused vomiting. Patient is 32 weeks gestation. Related Data Home Medications Medication Instructions Recorded Confirmed prenat.vits,jami,wmh-ymum-brned 1 tablet PO DAILY 12/11/22 02/22/23 Allergies Allergy/AdvReac Type Severity Reaction Status Date / Time No Known Allergies Allergy Verified 02/22/23 08:42 Review of Systems Review of Systems: CONSTITUTIONAL: Denies body aches, fever, chills, or sweats. EYES: Denies visual changes, redness, or discharge. ENT: Reports rhinorrhea, congestion, sore throat, otalgia. CARDIOVASCULAR: Denies chest pain, palpitations, or edema. RESPIRATORY: Denies dyspnea. GASTROINTESTINAL: reports occasional nausea vomiting Denies abdominal pain, or diarrhea. SKIN: Denies rash, itching, or wounds. MUSCULOSKELETAL: Denies back pain, joint pain, or myalgia. NEUROLOGIC: Denies headache PMFSH Past Medical History Medical History Gastrocnemius muscle strain Genital HSV History of chronic diarrhea Irritable bowel syndrome Irritable bowel syndrome with diarrhea Nausea and vomiting in adult Surgical History Surgical History History of cholecystectomy History of colonoscopy 2020 [place] teeth removed Family History Family History Mother Cervical cancer Social History Social History Smoking status: Never smoker Second hand tobacco smoke exposure: No Alcohol intake: former Substance use: never Substance use type: does not use Lack of Transportation: No Lack of Food: Never True Current Housing: I Have Housing Concerned About Future Housing: No Difficulty Paying Gas/Electric Bills: No Difficulty Paying for Meds: No Currently Unemployed: No Education: Bachelor's Degree Difficulty w/ Childcare or Family Care: No Living arrangements: with family Gender identity (if verbalized by the patient): Female Spiritual care concerns: No Exam Narrative: GENERAL: well-appearing, no acute distress. EYES: conjunctivae clear ENT: Mucous membranes moist. TMs pearly puente with normal light reflex bilaterally; no tragal tenderness. Oropharynx not erythematous without lesions. Tonsils not enlarged and without exudate. No drooling, no hoarseness, no trismus, uvula midline. No tripod positioning, hot potato voice, or soft palate swelling. NECK: Supple. No lymphadenopathy CHEST: Clear to auscultation, breath sounds equal. No respiratory distress, speaks in full sentences. HEART: Regular rate and rhythm. No murmur heard. SKIN: Warm, dry, no rash. NEURO: Alert and oriented x3. Course Course Emergency Course: Patient is aware of diagnosis, understands and agrees to treatment plan. Anticipatory guidance given. Patient agrees to follow-up as directed and is aware of reasons to seek care at the emergency department. Portions of this record may have been created with voice recognition software Level of Care: Express Care Visit Vital Signs Vital signs: Vital Signs Temperature 98.3 F 02/22/23 08:32 Pulse Rate 79 02/22/23 08:32 Respiratory Rate 20 02/22/23 08:32 Blood Pressure 105/58 L 02/22/23 08:32 Pulse Oximetry 100 02/22/23 08:32 Oxygen Delivery Room Air 02/22/23 08:
== END 2023-02-22 09:25 | disposition home or self-care (01) ==
PROVIDERS: Emergency Provider Nurse Practitioner Family; PCP Family Medicine
DX: O98.513 Other viral diseases complicating pregnancy, third trimester (principal); B34.9 Viral infection, unspecified; Z3A.32 32 weeks gestation of pregnancy
CPT/HCPCS: 99213; G0463

== ENCOUNTER 2023-08-30 11:50 | Outpatient (CLI) | payer OTHER, SELFPAY ==
--- NOTE | ~2023-08-30 | XR_ITS ---
EXAMINATION: XR hand RT 2V, XR wrist RT min 3V DATE: 08/30/2023 12:22 INDICATION: Right hand and wrist pain and stiffness TECHNIQUE: 1. Posteroanterior, ulnar deviation, oblique, and lateral views of the right wrist were obtained. 2. Dorsal palmar, oblique and lateral views of the right hand were obtained. COMPARISON: None. FINDINGS: The millimeter ulnar minus variance. Alignment of the right hand and wrist is otherwise normal. No f racture identified. Mild osteoarthritis at the distal radioulnar joint. Remaining joint spaces of the right hand and wrist are normal. No erosions to suggest inflammatory arthritis. No focal soft tissue swelling. IMPRESSION: 1. 3 mm ulnar minus variance with mild osteoarthritis at the distal radioulnar joint. Reviewed, dictated and finalized at location A. IMPRESSION: 1. 3 mm ulnar minus variance with mild osteoarthritis at the distal radioulnar joint.
--- NOTE | ~2023-08-30 | XR_ITS ---
EXAMINATION: XR hand LT 2V DATE: 08/30/2023 12:22 INDICATION: Left hand pain and stiffness TECHNIQUE: Posteroanterior and lateral views of the left hand were obtained. COMPARISON: None. FINDINGS: 2 mm ulnar minus variance with mild osteoarthritis at the distal radioulnar joint. Remaining joint sp aces are normal. No fracture. IMPRESSION: 1. 2 mm ulnar minus variance with mild osteoarthritis at the distal radioulnar joint. Reviewed, dictated and finalized at location A.
[2023-08-30 19:41] LABS: Alanine Aminotransferase 38 U/L (6-35); Albumin Level 4.7 g/dL (3.5-5.1); Alkaline Phosphatase 127 U/L (38-126); Anion Gap 11 mmol/L (4-12); Aspartate Amino Transferase 74 U/L (14-36); Bilirubin,Total 0.8 mg/dL (0.2-1.3); Blood Urea Nitrogen 15 mg/dL (7-17); Calcium 9.3 mg/dL (8.4-10.2); Carbon Dioxide 27 mmol/L (22-30); Chloride 103 mmol/L (98-107); Cholesterol 185 mg/dL (0-200); Estimated Glomerular Filt Rate > 60; Glucose 77 mg/dL (65-110); HDL Direct 53 mg/dL; Potassium 3.9 mmol/L (3.4-5.0); Sodium 141 mmol/L (137-145); Triglycerides 96 mg/dL (<150); Uric Acid 7.3 mg/dL (2.5-7.5)
[2023-08-30 19:49] LABS: Rheumatoid Factor < 12.0 IU/ML (<12)
[2023-08-30 19:52] LABS: LDL Cholesterol Direct 99 mg/dL
[2023-08-30 19:58] LABS: Free T4 Free Thyroxine 1.24 ng/mL (0.78-2.19); Vitamin D 25 Hydroxy 36.2 ng/mL
[2023-08-30 20:05] LABS: Basophils Percent Auto 0.3 % (0.2-1.2); Eosinophils Absolute Auto 0.2 K/mm3 (0-0.3); Eosinophils Percent Auto 2.5 % (0-4.4); Hematocrit 42.2 % (37.0-47.0); Hemoglobin 13.9 g/dL (12.0-15.0); Immature Granulocyte Absolute 0.01 K/mm3 (0.00-0.031); Immature Granulocyte Percent A 0.1 % (0-0.5); Lymphocytes Absolute Auto 1.57 K/mm3 (0.9-3.2); Lymphocytes Percent Auto 22.1 % (18.3-44.2); Mean Corpuscular HGB Conc 32.9 g/dl (32-36); Mean Corpuscular Hemoglobin 30.5 pg (26-34); Mean Corpuscular Volume 92.7 fl (80-100); Monocytes Absolute Auto 0.5 K/mm3 (0.1-0.6); Monocytes Percent Auto 7.3 % (2.6-8.5); Neutrophils Absolute Auto 4.8 K/mm3 (1.3-6.7); Neutrophils Percent Auto 67.7 % (45.5-73.1); Platelet Count Result 221 k/mm3 (150-375); Red Blood Count 4.55 M/mm3 (4.2-5.4); Red Cell Distribution Width 13.4 % (11.5-14.5); White Blood Count 7.1 K/mm3 (4.5-10.0)
[2023-08-30 20:07] LABS: Appearance Urine Cloudy (Clear); Bacteria Urine 2+ /hpf; Bilirubin Urine Negative (Negative); Blood Urine Negative (Negative); Color Urine Dark Yellow (Yellow); Glucose Urine UA Negative (Negative); Ketones Urine 1+ mg/dL (Negative); Leukocyte Esterase Ur 1+ LEU/UL (Negative); Nitrate Urine Negative (Negative); Non Pathogenic Casts 0-2; Protein Urine Negative (Negative); RBC Urine 0-2 /hpf (0-2); Specific Grav Ur 1.027 (1.001-1.035); Squamous Epithelial Cell Urine Few /hpf (Few); Urobilinogen Urine 0.2 mg/dL (<2.0); WBC Urine 21-50 /hpf (0-3); pH Urine 6.5 (5.0-9.0)
[2023-08-30 20:08] LABS: Add Urine Microscopic? YES
[2023-08-30 20:32] LABS: Erythrocyte Sedimentation Rate 23 mm/hr (0-20)
[2023-08-30 22:00] LABS: Hemoglobin A1C 5.1 % (<5.7)
[2023-09-03 08:43] LABS: Thyroid Peroxidase Antibodies 7 IU/mL (<9)
[2023-09-03 14:43] LABS: ANA Cascade Screen NEGATIVE (NEGATIVE)
== END 2023-08-30 11:51 | disposition home or self-care (01) ==
PROVIDERS: PCP Family Medicine; Visit Provider Nurse Practitioner Adult Health
DX: M24.832 Other specific joint derangements of left wrist, not elsewhere classified (principal); M24.831 Other specific joint derangements of right wrist, not elsewhere classified; M19.042 Primary osteoarthritis, left hand; M19.041 Primary osteoarthritis, right hand; E66.9 Obesity, unspecified; R39.9 Unspecified symptoms and signs involving the genitourinary system; R53.83 Other fatigue; Z13.9 Encounter for screening, unspecified
CPT/HCPCS: 36415; 73110; 73120; 80053; 80061; 81001; 82306; 83036; 84439; 84443; 84550; 85025; 85652; 86038; 86225; 86235; 86364; 86376; 86430

== ENCOUNTER 2023-08-31 09:26 | Emergency (ER) | payer OTHER, SELFPAY ==
[2023-08-31] VITALS (28 sets, daily range): BP systolic 98–130; BP diastolic 62–78; PULSE 69–91; RESP 11–21; TEMP 36.6; O2SAT 92–100
--- NOTE | 2023-08-31 10:56 | ED.LOWEXIN ---
HPI - Extremity Injury (Lower) General Chief Complaint: Extremity Injury, Lower Stated Complaint: BLE pain Time Seen by Provider: 08/31/23 10:55 Source: patient and family Mode of arrival: ambulatory Limitations: no limitations History of Present Illness HPI Narrative: 32 years old white female came to the emergency room by private car complaining of gradual progressive aches and pain all over her body started 2 weeks ago initially with her neck, both wrists more only on the right side her show, toes and fingers, lately her knees and ankles bilaterally more on left knee. Basically patient been aching all over her joints and bones was seen by [facility] yesterday, blood workup yesterday showed sed rate of 23, AST of 74, ALT 38 alkaline phosphatase 127. Urinalysis showed evidence of infection did not start an antibiotic yet patient breast-feeding and on vitamin at this time, rheumatoid factor less than 12, JUDIE ,tissue transglutaminase IgA, thyroid peroxidase antibody are pending Yesterday patient also had x-ray of the right wrist, hand bilaterally and showed no acute abnormalities. Patient was started on Medrol Dosepak and started the 1st dose this morning. History of IBS and cyclic vomiting syndrome Related Data Home Medications Medication Instructions Recorded Confirmed Fish oil BYMOUTH 08/30/23 08/30/23 Vitamin BYMOUTH 08/30/23 08/30/23 Sun Flower Lechiten .Route 08/30/23 08/30/23 vitamin D BYMOUTH 08/30/23 08/30/23 Allergies Allergy/AdvReac Type Severity Reaction Status Date / Time No Known Allergies Allergy Verified 08/31/23 07:38 Review of Systems Review of Systems: All systems reviewed & are unremarkable except as noted in HPI and below PMFSH Past Medical History Medical History Gastrocnemius muscle strain Genital HSV History of chronic diarrhea IBS (irritable bowel syndrome) Irritable bowel syndrome Irritable bowel syndrome with diarrhea Nausea and vomiting in adult Surgical History Surgical History History of cholecystectomy History of colonoscopy 2020 [place] teeth removed Family History Family History Mother Cervical cancer Father Hypertension Sibling Diabetes mellitus Depression Social History Social History Smoking status: Never smoker Second hand tobacco smoke exposure: No Alcohol intake: former Substance use: never Substance use type: does not use Do You Feel Safe in your Home?: Yes Lack of Transportation: No Lack of Food: Never True Current Housing: I Have Housing Concerned About Future Housing: No Difficulty Paying Gas/Electric Bills: No Difficulty Paying for Meds: No Currently Unemployed: No Education: Bachelor's Degree Difficulty w/ Childcare or Family Care: No Living arrangements: with family Occupation/Education: occupation Additional occupation/education comments: [employer] Compliance & Privacy Gender identity (if verbalized by the patient): Female Spiritual care concerns: No Exam Narrative: General appearance: Well-developed, well-nourished Skin: Normal color Head: Normocephalic, nontraumatic Eyes: Clear conjunctiva ENT: Oropharynx normal, ears normal, nose normal Neck: Supple, nontender Chest and respiratory: Airway patent, no respiratory distress, no accessory muscle use Heart: Regular rate/rhythm Abdomen: Soft, nontender, no organomegaly, quiet bowel sounds Vascular: Normal peripheral pulses, normal capillary refill. Musculoskeletal: DIFFUSE TENDERNESS OF THE WRIST BILATERALLY MORE AND RIGHT SIDE SLIGHTLY SWOLLEN, LIMITED RANGE OF MOTION, DIFFUSE TENDERNESS OF THE KNEES BILATERALLY WITH SLIGHT LIMITED RANGE OF MOTION. Neurologic: Alert and oriented ?3, PRODUCTION ILLUSTRATOR is normal as tested, n
--- NOTE | 2023-08-31 11:16 | PC.NURSE ---
patient states that compression stockings on this morning that helped to relieve the swelling and pain in lower legs but still has some swelling and pain present.
[2023-08-31 12:48] LABS: CRP 3.5 mg/dL (<1.0); Creatine Kinase 55 U/L (30-135)
[2023-08-31 14:42] LABS: Lactate Dehydrogenase 186 U/L (120-246)
[2023-08-31] MEDS: predniSONE 20 MG TABLET 60 MG PO (14:56)
[2023-09-03 15:43] LABS: Aldolase 4.9 U/L (< OR = 8.1)
== END 2023-08-31 15:26 | disposition home or self-care (01) ==
PROVIDERS: Emergency Provider Emergency Medicine; PCP Nurse Practitioner Adult Health
DX: M25.50 Pain in unspecified joint (principal); M60.9 Myositis, unspecified
CPT/HCPCS: 36415; 82085; 82550; 83615; 86140; 99283; J7512

== ENCOUNTER 2023-09-14 11:38 | Outpatient (CLI) | payer OTHER, SELFPAY ==
--- NOTE | ~2023-09-14 | XR_ITS ---
XR ankle LT 2V, XR foot LT 2V 09/14/2023 12:09 (accession [id number]), 09/14/2023 12:10 (accession [id number]) Indication: Joint pain Procedure: 2 views left ankle and 2 views left foot Comparison: No prior studies for comparison. Findings: No fracture or traumatic malalignment. No joint space narrowing. No significant soft tissue abnormality. No foreign bodies. No erosive changes. Impression: 1: No significant bone or joint abnormality. Reviewed, dictated and finalized at location B. Impression: 1: No significant bone or joint abnormality. Impression: 1: No significant bone or joint abnormality.
--- NOTE | ~2023-09-14 | XR_ITS ---
XR ankle RT 2V, XR foot RT 2V 09/14/2023 12:09 (accession [id number]), 09/14/2023 12:10 (accession [id number]) Indication: Joint pain Procedure: 2 views right ankle and 2 views right foot Comparison: No prior studies for comparison. Findings: No fracture or traumatic malalignment. No joint space narrowing. No significant soft tissue abnormality. No foreign bodies. No erosive changes. Impression: 1: No significant bone or joint abnormality. Reviewed, dictated and finalized at location B. Impression: 1: No significant bone or joint abnormality. Impression: 1: No significant bone or joint abnormality.
--- NOTE | ~2023-09-14 | XR_ITS ---
[id number] 09/14/2023 12:10 Indication: Joint pain Procedure: 2 views left knee including AP and tunnel view. Comparison: No prior studies for comparison. Findings: No fracture or traumatic malalignment. No joint space narrowing. Study technique Limited. Impression: 1: No significant bone or joint abnormality. Reviewed, dictated and finalized at location B. Impression: 1: No significant bone or joint abnormality.
--- NOTE | ~2023-09-14 | XR_ITS ---
[id number] 09/14/2023 12:11 Indication: Joint pain Procedure: 2 views right knee including AP and tunnel view. Comparison: No prior studies for comparison. Findings: No fracture or traumatic malalignment. No joint space narrowing. Study technique Limited. Impression: 1: No significant bone or joint abnormality. Reviewed, dictated and finalized at location B. Impression: 1: No significant bone or joint abnormality.
== END 2023-09-14 11:39 | disposition home or self-care (01) ==
PROVIDERS: PCP Nurse Practitioner Adult Health
DX: R53.81 Other malaise (principal); M25.50 Pain in unspecified joint; M79.10 Myalgia, unspecified site
CPT/HCPCS: 73560; 73600; 73620

== ENCOUNTER 2024-03-11 13:43 | Outpatient (CLI) | payer OTHER, SELFPAY ==
[2024-03-11 14:23] LABS: Basophils Percent Auto 0.4 % (0.2-1.2); Eosinophils Absolute Auto 0.1 K/mm3 (0-0.3); Eosinophils Percent Auto 1.6 % (0-4.4); Hematocrit 40.5 % (37.0-47.0); Hemoglobin 13.5 g/dL (12.0-15.0); Immature Granulocyte Absolute 0.01 K/mm3 (0.00-0.031); Immature Granulocyte Percent A 0.1 % (0-0.5); Lymphocytes Absolute Auto 1.58 K/mm3 (0.9-3.2); Lymphocytes Percent Auto 20.9 % (18.3-44.2); Mean Corpuscular HGB Conc 33.3 g/dl (32-36); Mean Corpuscular Hemoglobin 30.3 pg (26-34); Mean Corpuscular Volume 90.8 fl (80-100); Monocytes Absolute Auto 0.4 K/mm3 (0.1-0.6); Monocytes Percent Auto 5.7 % (2.6-8.5); Neutrophils Absolute Auto 5.4 K/mm3 (1.3-6.7); Neutrophils Percent Auto 71.3 % (45.5-73.1); Platelet Count Result 192 k/mm3 (150-375); Red Blood Count 4.46 M/mm3 (4.2-5.4); Red Cell Distribution Width 13.1 % (11.5-14.5); White Blood Count 7.6 K/mm3 (4.5-10.0)
[2024-03-11 15:00] LABS: Erythrocyte Sedimentation Rate 16 mm/hr (0-20)
[2024-03-11 15:02] LABS: Alanine Aminotransferase 24 U/L (6-35); Albumin Level 4.1 g/dL (3.5-5.1); Alkaline Phosphatase 89 U/L (38-126); Anion Gap 11 mmol/L (4-12); Aspartate Amino Transferase 30 U/L (14-36); Bilirubin,Total 0.5 mg/dL (0.2-1.3); Blood Urea Nitrogen 17 mg/dL (7-17); CRP < 0.5 mg/dL (<1.0); Calcium 8.9 mg/dL (8.4-10.2); Carbon Dioxide 22 mmol/L (22-30); Chloride 107 mmol/L (98-107); Estimated Glomerular Filt Rate > 60; Glucose 104 mg/dL (65-110); Potassium 3.9 mmol/L (3.4-5.0); Sodium 140 mmol/L (137-145)
[2024-03-11 15:05] LABS: Complement C3 111 mg/dL (88-165)
[2024-03-11 15:10] LABS: Hepatitis B Surface Antigen Negative (Negative)
[2024-03-11 15:27] LABS: Hepatitis C Virus Antibody Negative (Negative)
[2024-03-13 14:44] LABS: NIL 0.01 IU/mL; Quantiferon TB Plus, 1T NEGATIVE (NEGATIVE)
== END 2024-03-11 13:44 | disposition home or self-care (01) ==
PROVIDERS: PCP Nurse Practitioner Adult Health
DX: M19.90 Unspecified osteoarthritis, unspecified site (principal); R76.8 Other specified abnormal immunological findings in serum; Z79.899 Other long term (current) drug therapy
CPT/HCPCS: 36415; 80053; 85025; 85652; 86140; 86160; 86225; 86480; 86803; 87340

== ENCOUNTER 2024-08-15 12:17 | Outpatient (CLI) | payer OTHER, SELFPAY ==
[2024-08-15 12:40] LABS: Hematocrit 44.3 % (37.0-47.0); Hemoglobin 14.6 g/dL (12.0-15.0); Mean Corpuscular Hemoglobin 29.7 pg (26-34); Mean Platelet Volume 10.2 fl (7.4-10.4); Platelet Count Result 151 k/mm3 (150-375); Red Blood Count 4.92 M/mm3 (4.2-5.4); Red Cell Distribution Width 13.7 % (11.5-14.5); White Blood Count 5.8 K/mm3 (4.5-10.0)
[2024-08-15 13:14] LABS: Alanine Aminotransferase 24 U/L (6-35); Albumin Level 4.5 g/dL (3.5-5.1); Alkaline Phosphatase 88 U/L (38-126); Anion Gap 12 mmol/L (4-12); Aspartate Amino Transferase 38 U/L (14-36); Bilirubin,Total 0.6 mg/dL (0.2-1.3); Blood Urea Nitrogen 13 mg/dL (7-17); Calcium 9.1 mg/dL (8.4-10.2); Carbon Dioxide 25 mmol/L (22-30); Chloride 101 mmol/L (98-107); Cholesterol 181 mg/dL (0-200); Estimated Glomerular Filt Rate > 60; Glucose 64 mg/dL (65-110); HDL Direct 40 mg/dL; Potassium 4.1 mmol/L (3.4-5.0); Sodium 138 mmol/L (137-145); Total Protein 7.7 g/dL (6.3-8.2); Triglycerides 99 mg/dL (<150)
[2024-08-15 13:29] LABS: LDL Cholesterol Direct 98 mg/dL
== END 2024-08-15 12:18 | disposition home or self-care (01) ==
LOC: ANHLAB 12:19
PROVIDERS: PCP Nurse Practitioner Adult Health; Visit Provider Nurse Practitioner Adult Health
DX: Z00.00 Encounter for general adult medical examination without abnormal findings (principal)
CPT/HCPCS: 36415; 80053; 80061; 84443; 85027